=== PATIENT | male | born 1940 | race Caucasian/White ===

== ENCOUNTER 2021-03-19 13:40 | Inpatient (IN) | payer MEDICARE ==
[~2021-03-19] VITALS: Ht 175 cm; Wt 86.2 kg
[~2021-03-19 13:40] MED LIST: ACET-2650 PO; ACETAMINOPHEN 325 MG TABLET PO PRN; ACHD5005 PO; ALPRAZolam 0.25 MG (XANAX) TAB PO PRN; AMIO400T5 PO; APIX5TAB PO; ASPI-1238 PO; ATOR80TA76 PO; BISACODYL 10 MG SUPP (DULCOLAX) PR PRN; CALCIUM CARBONATE 500 MG (TUMS) TAB.CHEW PO PRN; DOCU100C37 PO; DOCUSATE SODIUM 100 MG (COLACE) CAP PO PRN; FLEET ENEMA ADULT 1 EA BTL PR PRN; GUAI120013 PO; LACTULOSE SYRUP 10GM/15ML (ENULOSE) 30ML UDC PO PRN; LOPERAMIDE 2 MG (IMODIUM) TABLET PO PRN; MELATONIN 3 MG TABLET PO PRN; METO-333 PO; ONDA-105 PO; ONDANSETRON 4 MG (ZOFRAN) ORAL DISSOLVE TAB PO PRN; PAMI30VI8 SQ; PANT40TA52 PO; POLY17PO6 PO; diphenhydrAMINE 25 MG TAB (BENADRYL) PO PRN; guaiFENesin/CODEINE (ROBITUSSIN AC) 10ML UDC PO PRN
--- NOTE | 2021-03-19 15:17 | Physical Therapy Evaluation ---
PT Evaluation-General Medical Diagnosis Admission Date Mar 19, 2021 at 13:40 Medical Diagnosis: CABG, CVA Onset Date: Mar 12, 2021 Therapy Diagnosis Therapy Diagnosis: impaired mobility Precautions Precautions/Isolations: Fall Prevention, Standard Precautions Weight Bear Status sternal precautions Referral Physician: Mildred Maria DO Reason for Referral: Evaluation/Treatment Medical History Pertinent Medical History: CAD, DM, HTN Reviewed History: Yes Social History Home: Multilevel Current Living Status: Spouse Entry Into Home: Stairs Without Railing PT Steps Into Home: 2 patient has a flight of steps to go up to his bedroom but patient is currently moving and will not have a flight of steps Prior Prior Level of Function SCALE: Activities may be completed with or without assistive devices. 1-Ncgpdfspww-vrdafyt completes the activity by him/herself with no assistance from a helper. 5-Set-up or Clean-up Assistance-helper sets up or cleans up; patient completes activity. [place] assists only prior to or following the activity. 4-Supervision or Touching Assistance-helper provides verbal cues and/or touching/steadying and/or contact guard assistance as patient completes activity. Assistance may be provided throughout the activity or intermittently. 3-Partial/Moderate Assistance-helper does LESS THAN HALF the effort. [place] lif ts, holds or supports trunk or limbs, but provides less than half the effort. 2-Substantial/Maximal Assistance-helper does MORE THAN HALF the effort. [place] lifts or holds trunk or limbs and provides more than half the effort. 9-Sksqroaww-qwaseq does ALL the effort. Patient does none of the effort to complete the activity. Or, the assistance of 2 or more helpers is required for the patient to complete the activity. If activity was not attempted, code reason: 7-Patient Refused. 9-Not Applicable-not attempted and the patient did not perform the activity before the current illness, exacerbation or injury. 10-Not Attempted due to Environmental Limitations-(lack of equipment, weather restraints, etc.). 88-Not Attempted due to Medical Conditions or Safety Concerns. Bed Mobility: 6 Transfers (B,C,W/C): 6 Gait: 6 Stairs: 6 Indoor Mobility (Ambulation): Independent Stairs: Independent PT Evaluation-Current Subjective Patient in family vehicle pre tx, agrees to PT, has minor incisional chest pain. Will be co-treating with OT for part of tx due to poor patient mobility, strength, endurance, coordinate UE and LE during activity, safety and reduce risk of falls. Pt/Family Goals to be independent at home Objective Patient Orientation: Person, Place, Situation ROM/Strength ROM Lower Extremities WNL Strength Lower Extremities LLE (hip flexion 3+/5, knee flexion 5/5, knee extension 5/5, dorsiflexion 5/5), RLE (hip flexion 3+/5, knee flexion 5/5, knee extension 5/5, dorsiflexion 5/5) Neuromuscular (Tone, Coordination, Reflexes) patient has intact peripheral vision and good tracking, patient states his vision was not affected by the stroke Sensory Vision: Functional Hearing: Hearing Aid/Aides Sensation Right Lower Extremit: Intact Sensation Left Lower Extremity: Intact Transfers Roll Left & Right (QC): 4 Sit to Lying (QC): 4 Lying to Sitting/Side of Bed(Q: 4 Sit to Stand (QC): 3 Chair/Eja-ue-Heuvc Xfer(QC): 4 Toilet Transfer (QC): 4 Car Transfer (QC): 3 Patient performs rolling and supine <-> sit with SBA, sit <-> stand min assist, transfers CGA, car transfer min assist. Patient has some difficulty with supine <-> sit but can do it with cues for positioning without therapist assist. Patient is aware of her sternal precautions Gait Does the Patient Walk?: Yes Mode of Locomotion: Walk Anticipated Mode of Locomotion: Walk Walk 10 feet (QC): 4 Walk 50 ft with 2 Turns(QC): 4 Walk 150 ft (QC): 4 Walking 10ft/uneven surface-QC: 4 Distance: 300', 100'x2 Gait Assistive Device: FWW Comments/Gait Description Patient can ambulate 300' with a rolling walker with CGA (including 50' with at least 2 turns of 90 degrees and 10' over an uneven surface), ambulation is slow, has moments of slight unsteadiness but no LOB, is a little SOB afterward but recovers quickly with rest Wheelchair Training Does the Pt Use a Wheelchair?: No Wheel 50 ft with 2 turns (QC): 9 Wheel 150 ft (QC): 9 Stairs #of Steps: 1 1 Step (curb) (QC): 4 4 Steps (QC): 88 12 Steps (QC): 88 Walking Assistive Device: Walker Patient can go up and down 1 step using a rolling walker with CGA, cues for safety Balance Sitting Static: Normal Sitting Dynamic: Normal Standing Static: Good Standing Dynamic: Fair Picking up an Object (QC): 4 (SBA with brush stainer) Treatment PT performed bed mobility and transfers, ambulation, stair training, standing and positioning and safety during dressing and bathing, OT performed dressing, bathing, UE positioning and safety during activity, precaution compliance. Assessment/Needs Patient in bed post tx with nurse call, phone, tray, all needs met. Patient has impaired mobility. He needs cues for positioning of arms when standing and laying down. Rehab Potential: Fair PT Short Term Goals Short Term Goals Time Frame: Mar 26, 2021 Roll Left & Right: 6 Sit to lyin Lying to sitting on side of be: 6 Sit to stand: 4 (SBA) Chair/aun-mb-nsvvw transfer: 4 (SBA) Walk 10 feet: 4 (SBA) Walk 50 feet with two turns: 4 (SBA) Walk 150 feet: 4 (SBA) PT Clinical Research Spec Goals Prison Goals PT Prison Goals Time Frame: Apr 09, 2021 Roll Left & Right (QC): 6 Sit to Lying (QC): 6 Lying-Sitting on Side/Bed(QC): 6 Sit to Stand (QC): 6 Chair/Xzp-vh-Ljbxa Xfer(QC): 6 Toilet Transfer (QC): 6 Car Transfer (QC): 6 Does the Patient Walk: Yes Walk 10 feet (QC): 6 Walk 50ft with 2 Turns (QC): 6 Walk 150 ft (QC): 6 Walking 10ft on Uneven Surface: 6 1 Step (curb) (QC): 4 4 Steps (QC): 4 12 Steps (QC): 4 Picking up an Object (QC): 6 Wheel 50 feet with 2 turns (QC: 9 Wheel 150 feet: 9 PT Plan Problem List Problem List: Activity Tolerance, Functional Strength, Safety, Balance, Gait, Transfer, Bed Mobility, ROM Treatment/Plan Treatment Plan: Continue Plan of Care Treatment Plan: Bed Mobility, Education, Functional Activity Sav, Functional Strength, Group Therapy, Gait, Safety, Therapeutic Exercise, Transfers Treatment Duration: Apr 09, 2021 Frequency: At least 5 of 7 days/Wk (IRF) Estimated Hrs Per Day: 1.5 hours per day Patient and/or Family Agrees t: Yes Safety Risks/Education Patient Education: Gait Training, Transfer Techniques, Steps, Reviewed Precautions, Correct Positioning, Safety Issues Teaching Recipient: Patient Teaching Methods: Demonstration, Discussion Response to Teaching: Reinforcement Needed Discharge Recommendations Plan Patient will perform bed mobility and transfer training, balance and endurance training, functional strengthening, stair training, gait training, and education, to improve functional mobility and independence at home. Therapy Discharge Recommendati: Home & Family, Post Acute PT Time/GCodes Time In: 1340 Time Out: 1520 Total Billed Treatment Time: 90 Total Billed Treatment 1 visit EVM 10' FA 80' PT eval from [id number], OT eval from [id number], co-treat from [id number] NOLAN WALSH PT Mar 19, 2021 15:16
--- NOTE | 2021-03-19 15:19 | Occupational Therapy Eval ---
OT Evaluation-General/PLF Medical Diagnosis Admission Date Mar 19, 2021 at 13:40 Medical Diagnosis: s/p CABG x4 and CVA Onset Date: Mar 12, 2021 Therapy Diagnosis Therapy Diagnosis: reduced adl status Precautions Precautions/Isolations: Fall Prevention, Standard Precautions Comments Sternal precautions Per RN, prevena dressing to be discharged 03/20/21. Pt able to get incisions wet with water only. No soap. Weight Bear Status Weight Bearing Restriction: Non Weight Bearing Location Restriction: UE Bilateral Referral Physician: Candace Referral Reason: Evaluation/Treatment Medical History Pertinent Medical History: CABG, CAD, DM, HTN Additional Medical History coronary stent x2, lumbar disc Current History s/p CABG x4 on 03/12/21. Post op AMS and L sided weakness. MRI on 03/16 revealed subacute L ASSAYER HELPER infarct involving L temporal and occipital lobe. Reviewed History: Yes Social History Home: Multilevel Current Living Status: Spouse Entry Into Home: Stairs With Railing Pt reports that he lives in a multilevel home with his . He is in the process of moving into a new home in April. The new home is one level, zero steps. Pt was indep with adls prior to admission. completes most of the iadls. No assistive device used, still drives ADL-Prior Level of Function SCALE: Activities may be completed with or without assistive devices. 2-Zonfyrnwsv-czcnsoi completes the activity by him/herself with no assistance from a helper. 5-Set-up or Clean-up Assistance-helper sets up or cleans up; patient completes activity. [place] assists only prior to or following the activity. 4-Supervision or Touching Assistance-helper provides verbal cues and/or touching/steadying and/or contact guard assistance as patient completes activity. Assistance may be provided throughout the activity or intermittently. 3-Partial/Moderate Assistance-helper does LESS THAN HALF the effort. [place] lifts, holds or supports trunk or limbs, but provides less than half the effort. 2-Substantial/Maximal Assistance-helper does MORE THAN HALF the effort. [place] lifts or holds trunk or limbs and provides more than half the effort. 2-Yobuycbdb-ekcuqw does ALL the effort. Patient does none of the effort to complete the activity. Or, the assistance of 2 or more helpers is required for the patient to complete the activity. If activity was not attempted, code reason: 7-Patient Refused. 9-Not Applicable-not attempted and the patient did not perform the activity before the current illness, exacerbation or injury. 10-Not Attempted due to Environmental Limitations-(lack of equipment, weather restraints, etc.). 88-Not Attempted due to Medical Conditions or Safety Concerns. Self Care: Independent Functional Cognition: Independent DME/Equipment: Bath Chair (built in seat), Grab Bars, Shower Drive Self: Yes Leisure Interests: golfing OT Current Status Subjective Pt reports slight pain stemming from incision Appearance Left supine in bed, all needs within reach Mental Status/Objective Patient Orientation: Person, Situation Attachments: IV Current Glasses/Contacts: Yes (reading) Hearing Aids: Yes (bilateral) Dentures/Partials: Yes Hand Dominance: Right Upper Extremity ROM Shoulder to 90 degrees secondary to sternal precautions. Elbow-distally WNL. Swelling notable in bilateral hands Upper Extremity Strength Not formally tested due to recent surgery. Anticipate at least 3+/5 ADL-Treatment Eating (QC): 6 Oral Hygiene (QC): 4 Shower/Bathe Self (QC): 3 (min) Upper Body Dressing (QC): 3 (mod) Lower Body Dressing (QC): 3 (min) On/Off Footwear (QC): 3 (min) Toileting Hygiene (QC): 4 Sponge bath performed; majority completed in sitting. Prevena dressing to be removed 03/20/21. Per RN, incisions can get wet with water only, no soap. Min cues on adherence to sternal precautions throughout activity. Pt often forgetting no lifting over 90 degrees shoulder flexion. In sitting, pt able to reach feet with extra effort. SOA notable post step, needing a sitting rest break to recover and cues for PLB. Steadying assist required as he stood to wash benny area. Min a for thoroughness when washing buttocks. Pt able to manage pants over feet with supervision. Min a for balance as he stood to manage clothing up to waist. In standing, pt able to thread RUE into sleeve, requires assist to bring around back and thread LUE. Pt able to button without assist. Other Treatments Pt ambulated throughout unit with close SBA-CGA and use of walker. No LOB or unsteadiness observed. Pt does report fatigue post mobility and exhibits slight SOB. Sitting rest break needed. Multiple sit<>stands performed throughout treatment. Initially min- mod a needed. As session continues, pt able to stand with CGA and hands on knees. Education OT Patient Education: Correct positioning, Disease process, Energy conservatio n, Modified ADL techniques, Progress toward Goal/Update tx plan, Purpose of tx/functional activities, Reviewed precautions, Rehab process, Safety issues, Transfer techniques Teaching Recipient: Patient Teaching Methods: Demonstration, Discussion Response to Teaching: Verbalize Understanding, Return Demonstration, Live nforcement Needed OT Short Term Goals Short Term Goals Time Frame: Mar 24, 2021 Eatin Oral hygiene: 6 Toileting hygiene: 4 Shower/bathe self: 4 Upper body dressin Lower body dressin Putting on/taking off footwear: 4 OT Senior Care Goals Carrier Packer Goals Time Frame: Mar 30, 2021 Eating (QC): 6 Oral Hygiene (QC): 6 Toileting Hygiene (QC): 6 Shower/Bathe Self (QC): 5 Upper Body Dressing (QC): 6 Lower Body Dressing (QC): 6 On/Off Footwear (QC): 5 1=Demonstrate adherence to instructed precautions during ADL tasks. 2=Patient will verbalize/demonstrate understanding of assistive devices/modifications for ADL. 3=Patient will improve strength/tolerance for activity to enable patient to perform ADL's. OT Education/Plan Problem List/Assessment Assessment: Decreased Activ Tolerance, Decreased Safety Aware, Decreased UE Strength, Impaired Cognition, Impaired Funct Balance, Impaired Self-Care Skills, Restricted Funct UE ROM Discharge Recommendations Plan/Recommendations: Continue POC Therapy Discharge Recommendati: Home & Family, Post Acute OT (home health OT) Equpiment Recommendations-D/C: Toilet Riser Treatment Plan/Plan of Care Treatment,Training & Education: Yes Patient would benefit from OT for education, treatment and training to promote independence in ADL's, mobility, safety and/or upper extremity function for ADL's. Plan of Care: ADL Retraining, Functional Mobility, Group Exercise/Act as Ind, UE Funct Exercise/Act Treatment Duration: Mar 30, 2021 Frequency: At least 5 of 7 days/Wk (IRF) Estimated Hrs Per Day: 1.5 hours per day Agreement: Yes Rehab Potential: Good Time/GCodes Start Time: 13:50 Stop Time: 15:20 Total Time Billed (hr/min): 90 Billed Treatment Time 1 visit EVM (10 min) ADL x3 (50 min) FA x2 (30 min) Kelsi Easton OT Mar 19, 2021 15:19
[2021-03-19] MEDS ORDERED: NON-FORMULARY MEDICATION 1 EA EA (Ondansetron HCl 4 MG) PO PRN (17:00)
[2021-03-19] MEDS ORDERED: NON-FORMULARY MEDICATION 1 EA EA (Acetaminophen (Tylenol Arthritis) 650 MG) PO PRN (17:00)
[2021-03-19] MEDS ORDERED: NON-FORMULARY MEDICATION 1 EA EA (Guaifenesin (Mucinex) 1,200 MG) PO SCH (17:00)
--- NOTE | 2021-03-19 17:16 | PM&R Post Admission Assessment ---
PM&R HP Date of Visit: Mar 19, 2021 Time of Visit: 18:00 History of Present Illness Chief complaint: CVA History of present illness: This is an 80-year-old white male clinic patient of Dr. Farshad Patel in [place], [place] and Dr. 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 Apparently patient had a CABG and postoperatively experienced altered mental status and upon work-up revealed a subacute left PRESSING MACHINE TENDER infarct involving the left temporal lobe and left occipital lobe. It was c onsidered a large stroke. Ultimately required a wound VAC to the sternal incision which was discontinued yesterday. He did experience acute blood loss anemia with hemoglobin stable at 9.6 with hypoxemia that has since resolved and now on room air. He did have leukocytosis and vancomycin and meropenem were given empirically and discontinued since all cultures were no growth to date. He does have a history of chronic kidney disease stage III with hypernatremia and hypokalemia an episode of atrial fibrillation now normal sinus rhythm. Prior to surgery he was independent with no assistive devices active and golfing. Past Rulalxo-Ykquza-Lkrtzg Hx Past Med/Social Hx: Reviewed Nursing Past Med/Soc Hx, Reviewed and Corrections made Patient Social History Marrital Status: Employed/Student: retired Alcohol Use: Occasionally Uses Smoking Status: Former Smoker Immunizations Up To Date Date of Influenza Vaccine: Nov 08, 2021 Past Medical History Surgeries: CABG, Coronary Stent Cardiac: Atrial Fibrillation, Chronic Edema/Swelling, Coronary Artery Disease, High Cholesterol, Hypertension Neurological: Stroke Genitourinary: Prostate Problems, Renal Failure Gastrointestinal: Gastroesophageal Reflux, Hemorrhoids Musculoskeletal: Chronic Back Pain Endocrine: Diabetes, Non-Insulin dep Prior Level of Function Bed Mobility: 6 Transfers: 6 Gait: 6 Stairs: 6 Indoor Mobility (Ambulation): Independent Stairs: Independent Self Care: Independent Functional Cognition: Independent Drive Self: Yes Leisure Interests: golfing Current Level of Fuctioning Roll Left to Right: 4 Sit to Lyin Lying to Sitting/Side of Bed: 4 Sit to Stand: 3 Chair/Nuk-cf-Kvnql Xfer: 4 Car Transfer: 3 Does the Patient Walk: Yes Mode of Locomotion: Walk Anticipated Mode of Locomotion: Walk Walk 10 feet: 4 Walk 50 ft with 2 Turns: 4 Walk 150 ft: 4 Walking 10ft on uneven surface: 4 Gait Assistive Device: FWW Does the Pt Use a Wheelchair: No Wheel 50 ft with 2 turns: 9 Wheel 150 ft: 9 #of Steps: 1 1 Step (curb): 4 4 Steps: 88 Walking Assistive Device: Walker 12 Steps: 88 Picking up an Object: 4 (SBA with bulb filler) Eatin Oral Hygiene: 4 Shower/Bathe Self: 3 (min) Upper Body Dressin (mod) Lower Body Dressin (min) On/Off Footwear: 3 (min) Toileting Hygiene: 4 PM&R Allergy/Meds/Data Review Allergies Coded Allergies: No Known Drug Allergies (Unverified , 03/19/21) Home Medications Scheduled Amiodarone HCl (Amiodarone HCl), 400 MG PO DAILY, (Reported) Apixaban (Eliquis), 5 MG PO BID, (Reported) Aspirin (Aspirin EC), 81 MG PO DAILY, (Reported) Atorvastatin Calcium (Atorvastatin Calcium), 80 MG PO HS, (Reported) Docusate Sodium (Docusate Sodium), 100 MG PO BID, (Reported) Guaifenesin (Mucinex), 1,200 MG PO Q12H, (Reported) Insulin Lispro (Humalog), UNIT SQ WITH MEALS & BEDTIME, (Reported) Metoprolol Tartrate (Metoprolol Tartrate), 12.5 MG PO BID WITH MEALS, (Reported) Pantoprazole Sodium (Pantoprazole Sodium), 40 MG PO DAILY, (Reported) Polyethylene Glycol 3350 (Miralax), 17 GM PO DAILY, (Reported) Scheduled PRN Acetaminophen (Tylenol Arthritis), 650 MG PO Q4H PRN for PAIN-MILD (1-4), (Reported) Hydrocodone/Acetaminophen (Hydrocodone-Acetamin 5-325 mg), 1 TAB PO Q6H PRN for PAIN-MODERATE (5-7), (Reported) Ondansetron HCl (Ondansetron HCl), 4 MG PO Q6H PRN for NAUSEA/VOMITING-1ST LINE, (Reported) Current Medications Current Medications Reviewed Review of Systems Constitutional: see HPI, malaise, weakness EENTM: no symptoms reported Respiratory: dyspnea on exertion Cardiovascular: no symptoms reported Gastrointestinal: no symptoms reported Genitourinary: decreased output Musculoskeletal: back pain Skin: no symptoms reported Psychiatric/Neurological: Anxiety, Numbness, Weakness All Other Systems Reviewed Negative Unless Noted: Yes Physical Exam Physical Exam Vital Signs Capillary Refill : Height, Weight, BMI Height: '" Weight: lbs. oz. kg; 28.08 BMI Method: General Appearance: No Apparent Distress, WD/WN, Chronically ill, Obese Eyes: Bilateral Eye Normal Inspection, Bilateral Eye PERRL HEENT: PERRL/EOMI, Normal ENT Inspection, Pharynx Normal Neck: Full Range of Motion, Normal Inspection, Non Tender, Supple, Carotid Bruit Respiratory: Chest Non Tender, Lungs Clear, Normal Breath Sounds, No Accessory Muscle Use, No Respiratory Distress Cardiovascular: Regular Rate, Rhythm, No Edema, No Gallop, No JVD, No Murmur, Normal Peripheral Pulses Gastrointestinal: Normal Bowel Sounds, No Organomegaly, No Pulsatile Mass, Non Tender, Soft Back: Normal Inspection, No CVA Tenderness, No Vertebral Tenderness Extremity: Normal Capillary Refill, Normal Inspection, Normal Range of Motion, Non Tender, No Calf Tenderness, No Pedal Edema Neurologic/Psychiatric: Alert, Oriented x3, Normal Mood/Affect, desk reporter II-XII Norm as Tested, Abnormal Gait, Motor Weakness (Bilateral upper extremities 3/5) Skin: Normal Color, Warm/Dry Lymphatic: No Adenopathy PM&R Medical Assessment & Plan REHAB/MEDICAL ASSESSMENT AND PLAN: REHAB IMPAIRMENT GROUP: CVA ETIOLOGIC DIAGNOSIS: CVA The comorbidities that impact the patients function and/or functional outcome by: Recent bypass surgery sternal wound, advanced age REHAB PLAN: The patient is being admitted to our comprehensive inpatient rehabilitation facility and can tolerate the intensity of service consisting of at least: 180 minutes of therapy a day, 5 out of 7 days a week Rehab treatment will consist of: PT and OT will focus on regaining function with use of assistive device in order to return back to independent living with and speech therapy will help with cognitive deficits The patient/family has a good understanding of our discharge process and will benefit from an interdisciplinary inpatient rehabilitation program. The patient has potential to make improvement and is in need of at least two of the following multidisciplinary therapies including but not limited to physical, occupational, speech, and prosthetics and orthotics. Additionally the patient will need services from respiratory, nutritional services, wound care, psychology, etc. (Customize this to each patient). Given the patients complex condition and risk of further medical complications, rehabilitation services cannot be safely or effectively provided at a lower level of care such as a longterm facility. BARRIERS TO DISCHARGE: Severe weakness ESTIMATED LOS: 10 days DISPOSITION: Home RELEVANT CHANGES SINCE PREADMISSION SCREENING: I have compared the patients medical and functional status at the time of the preadmission screening and there are: No changes PROGNOSIS: Good REHABILITATION GOALS: 1. PT and OT will focus on regaining function with use of assistive device in order to return back to independent living with and speech therapy will help with cognitive deficits All the above goals were reviewed with the patient and he/she is in agreement. By signing this document, I acknowledge that I have personally performed a full physical examination on this patient within 24 hours of admission to this inpatient rehabilitation facility and have determined the patient to be able to tolerate the above course of treatment at an intensive level for a reasonable period of time. I will be completing a detailed individualized Plan of Care for this patient by day #4 of the patients stay based upon the Preadmission Screen, the Post-Admission Evaluation, and the therapy evaluations. Admission Dx/Comorbidities: (1) CVA (cerebral vascular accident) ICD Codes: I63.9 - Cerebral infarction, unspecified Assessment/Plan Assessment and Plan Assess & Plan/Chief Complaint Assessment: CVA Atrial fibrillation Maintain on anticoagulation for stroke prophylaxis Diabetes Hypertension Hyperlipidemia Confusion Sternal wound Recent bypass surgery Plan: Rehab protocol Cardiology consult Monitor closely LESTER MACIEL DO Mar 19, 2021 17:16
[2021-03-19] MEDS: meTOprolol TARTRATE 25 MG (LOPRESSOR) TABLET PO SCH (19:12)
[2021-03-19 19:58] VITALS: BP 151/69
[2021-03-19] MEDS ORDERED: polyethylene glycoL POWDER 17 GM (MIRALAX) PACK PO SCH (21:00)
[2021-03-19] MEDS ORDERED: DOCUSATE SODIUM 100 MG (COLACE) CAP PO SCH (21:00)
[2021-03-19] MEDS: inSUlin ASPART (NovoLOG) 1 UNIT/0.01 ML (CHARGE PER UNIT) SC SCH (21:37)
[2021-03-19] MEDS: guaiFENesin (MUCINEX) 600 MG TAB PO SCH (21:47)
[2021-03-19] MEDS: APIXABAN 5 MG (ELIQUIS) TABLET PO SCH (21:47)
[2021-03-19] MEDS: DOCUSATE SODIUM 100 MG (COLACE) CAP PO SCH (21:52)
[2021-03-19] MEDS: SENNA W/DOCUSATE (SENOKOT S) TABLET PO SCH (21:53)
[2021-03-20] MEDS: inSUlin ASPART (NovoLOG) 1 UNIT/0.01 ML (CHARGE PER UNIT) SC SCH ×4 (06:00→20:35)
--- NOTE | 2021-03-20 06:46 | PM&R Progress Note ---
Subjective HPI/CC On Admission Date Seen by Provider: Mar 20, 2021 Time Seen by Provider: 11:00 Subjective/Events-last exam 03/20/2021: Patient doing very well Settling in well EKG obtained for Dr. Encarnacion No pain is reported except for mediastinum Reviewed labs Sitting in chair Eating well Review of Systems General: Fatigue, Malaise Objective Exam Vital Signs Vital Signs Date Time Temp Pulse Resp B/P (MAP) Pulse Ox O2 Delivery O2 Flow Rate FiO2 03/20/21 20:38 93 Room Air 03/20/21 19:32 36.8 68 18 165/76 (105) Capillary Refill : General Appearance: No Apparent Distress, WD/WN, Chronically ill, Obese HEENT: PERRL/EOMI, Normal ENT Inspection, Pharynx Normal Neck: Full Range of Motion, Normal Inspection, Non Tender, Supple, Carotid Bruit Respiratory: Chest Non Tender, Lungs Clear, Normal Breath Sounds, No Accessory Muscle Use, No Respiratory Distress Cardiovascular: Regular Rate, Rhythm, No Edema, No Gallop, No JVD, No Murmur, Normal Peripheral Pulses Gastrointestinal: Normal Bowel Sounds, No Organomegaly, No Pulsatile Mass, Non Tender, Soft Back: Normal Inspection, No CVA Tenderness, No Vertebral Tenderness Extremity: Normal Capillary Refill, Normal Inspection, Normal Range of Motion, Non Tender, No Calf Tenderness, No Pedal Edema Neurologic/Psychiatric: Alert, Oriented x3, Normal Mood/Affect, exterminator helper II-XII Norm as Tested, Abnormal Gait, Motor Weakness (Bilateral upper extremities 3/5) Skin: Normal Color, Warm/Dry Lymphatic: No Adenopathy Results/Procedures Lab Patient resulted labs reviewed. FIM Transfers Therapy Code Descriptions/Definitions Functional [place] Measure: 0=Not Assessed/NA 4=Minimal Assistance 1=Total Assistance 5=Supervision or Setup 2=Maximal Assistance 6=Modified [place] 3=Moderate Assistance 7=Complete IndependenceSCALE: Activities may be completed with or without assistive devices. 2-Jomnrwjrmd-ngaacms completes the activity by him/herself with no assistance from a helper. 5-Set-up or Clean-up Assistance-helper sets up or cleans up; patient completes activity. [place] assists only prior to or following the activity. 4-Supervision or Touching Assistance-helper provides verbal cues and/or touching/steadying and/or contact guard assistance as patient completes activity. Assistance may be provided throughout the activity or intermittently. 3-Partial/Moderate Assistance-helper does LESS THAN HALF the effort. [place] lifts, holds or supports trunk or limbs, but provides less than half the effort. 2-Substantial/Maximal Assistance-helper does MORE THAN HALF the effort. [place] lifts or holds trunk or limbs and provides more than half the effort. 7-Gujanpkhc-obzroe does ALL the effort. Patient does none of the effort to complete the activity. Or, the assistance of 2 or more helpers is required for the patient to complete the activity. If activity was not attempted, code reason: 7-Patient Refused. 9-Not Applicable-not attempted and the patient did not perform the activity before the current illness, exacerbation or injury. 10-Not Attempted due to Environmental Limitations-(lack of equipment, weather restraints, etc.). 88-Not Attempted due to Medical Conditions or Safety Concerns. Roll Left to Right (QC): 4 Sit to Lying (QC): 4 Sit to Stand (QC): 3 Chair/Nqb-lb-Vykfe Xfer(QC): 4 Car Transfer (QC): 3 Gait Training Does the Patient Walk?: Yes Walk 10 feet (QC): 4 Walk 50 ft with 2 Turns(QC): 4 Walk 150 ft (QC): 4 Walking 10ft/uneven surface-QC: 4 Gait Assistive Device: FWW Wheelchair Training Does the Pt Use a Wheelchair?: No Wheel 50 ft with 2 turns (QC): 9 Wheel 150 ft (QC): 9 Stair Training #of Steps: 1 1 Step (curb) (QC): 4 4 Steps (QC): 88 12 Steps (QC): 88 Balance Picking up an Object (QC): 4 (SBA with veneer drier feeder) ADL-Treatment Eating (QC): 6 Oral Hygiene (QC): 4 Shower/Bathe Self (QC): 3 (min) Upper Body Dressing (QC): 3 (mod) Lower Body Dressing (QC): 3 (min) On/Off Footwear (QC): 3 (min) Toileting Hygiene (QC): 4 Assessment/Plan Assessment and Plan Assess & Plan/Chief Complaint Assessment: CVA Atrial fibrillation Maintain on anticoagulation for stroke prophylaxis Diabetes Hypertension Hyperlipidemia Confusion Sternal wound Recent bypass surgery Plan: Rehab protocol Cardiology consult Monitor closely 03/20/2021: Supportive care Labs stable (1) CVA (cerebral vascular accident) LESTER MACIEL DO Mar 20, 2021 06:46
--- NOTE | 2021-03-20 06:46 | Individualized Plan of Care ---
Individualized Plan of Care Rehab Nursing IPOC Order Admission Date Mar 19, 2021 at 13:40 Current Orders Orders Admission Order(Inpt,Obs,Sdc) (03/19/21:33) Ramirez Avalos (03/19/21:33) Sequential Compression Device (03/19/21:33) Rn Medical Inpatient Services-Inpt Rehab Con (03/19/21:33) Rehab Nursing Orders-Ipoc (03/19/21:33) Physical Therapy Rehab Orders (03/19/21:33) Occupational Therapy Rehab Ord (03/19/21:33) Speech Therapy Rehab Orders (03/19/21:33) Cbc With Automated Diff (03/20/21 06:00) Comprehensive Metabolic Panel (03/20/21 06:00) Precautions (Aru) (03/19/21:33) Weekly Weight WEEK (03/19/21:33) Rehab-Intensity Of Therapy (03/19/21:33) Initiate Admission Nursing Pro .admission (03/19/21:33) Alprazolam Tablet (Xanax Tablet) (03/19/21 09:45) Calcium Carbonate Chew Tablet (Antacid C (03/19/21 09:45) Diphenhydramine Tablet (Benadryl Tablet) (03/19/21 09:45) Docusate Sodium Capsule (Colace Capsule) (03/19/21 21:00) Docusate Sodium Capsule (Colace Capsule) (03/19/21 09:45) Bisacodyl Suppository (Dulcolax Supposit (03/19/21 09:45) Lactulose Oral Solution (Enulose Oral So (03/19/21 09:45) Na Phos/Na Biphos Enema (Fleet Enema Bryce (03/19/21 09:45) Guaifenesin/Codeine Syrup (Robitussin Ac (03/19/21 09:45) Loperamide Tablet (Imodium Tablet) (03/19/21 09:45) Melatonin Tablet (Melatonin Tablet) (03/19/21 09:45) Polyethylene Glycol Powder Pkt (Miralax (03/19/21 21:00) Ondansetron Oral Dissolve Tab (Zofran (03/19/21 09:45) Senna S Tablet (Senokot S Tablet) (03/19/21 21:00) Acetaminophen Tablet/Caplet (Tylenol T (03/19/21 09:45) Code/Resuscitation (03/19/21 09:33) Sequential Compression Device ONCE (03/19/21 09:33) Admission Arrival Bed Request (03/19/21 13:40) General/Regular (03/19/21 Lunch) Patient Visit (03/19/21 ) Pt Eval Moderate Complexity (03/19/21 ) Functional Activities, Ea 15 (03/19/21 ) Apixaban Tablet (Eliquis Tablet) (03/19/21 21:00) Aspirin Enteric Coated Tablet (Ecotrin T (03/20/21 09:00) Atorvastatin Tablet (Lipitor Tablet) (03/19/21 21:00) Docusate Sodium Capsule (Colace Capsule) (03/19/21 21:00) Hydrocodone/Apap 5/325 Tablet (Lortab 5 (03/19/21 17:00) Metoprolol Tartrate (Ir) Tab (Lopressor (03/19/21 18:00) Pantoprazole Tablet (Protonix Tablet) (03/20/21 09:00) Polyethylene Glycol Powder Pkt (Miralax (03/20/21 09:00) (Nf) Acetaminophen (Tylenol Arthritis) (03/19/21 17:00) (Nf) Amiodarone Hcl (03/20/21 09:00) (Nf) Guaifenesin (Mucinex) (03/19/21 17:00) (Nf) Ondansetron Hcl (03/19/21 17:00) Accucheck Achs ACHS (03/19/21 16:55) Insulin Aspart (Novolog) (Novolog (Charg (03/19/21 21:00) Amiodarone Tablet (Cordarone Tablet) (03/20/21 09:00) Nursing Communication (Order) (03/19/21 17:01) Dressing Order (Intervention) DAILY (03/19/21 17:01) Guaifenesin Tablet (Mucinex Tablet) (03/19/21 21:00) Fluid Restriction (03/19/21 17:20) Consult Cardiology (03/20/21 06:39) Ekg Tracing (03/20/21 08:00) Manual Differential (03/20/21 05:45) Patient Visit (03/20/21 ) Gait Training, Ea 15 Min (03/20/21 ) Exercise Therap, Ea 15 Min (03/20/21 ) Amiodarone Tablet (Cordarone Tablet) (03/21/21 09:00) Rehab Nursing Orders: Ongoing Assess. of Cognitive Status, Ongoing Assess. of Function Status, Bladder Management, Bladder Scan, Bladder Training, Bowel Management, Bowel Training, Disease Management & Educaiton, DVT Prophylaxis, Fall Prevention, Fluid/Electrolyte/Nutrition Mgmt, Infection Prevention, Medication Management & Education, Management of Risks & Complications, Management of Skin Intergrity, Nutrition Management, Pain Management, Patient/Family Support, Safety Management, Wound Management Intensity of Therapy to be met Patient to be seen: Min.3h per day/5 of 7d PT IPOC Problem List: Activity Tolerance, Functional Strength, Safety, Balance, Gait, Transfer, Bed Mobility, ROM Treatment Plan: Continue Plan of Care Bed Mobility, Education, Functional Activity Sav, Functional Strength, Group Therapy, Gait, Safety, Therapeutic Exercise, Transfers Treatment Duration: Apr 09, 2021 Frequency: At least 5 of 7 days/Wk (IRF) Estimated Hrs Per Day: 1.5 hours per day OT IPOC Problems: Decreased Activ Tolerance, Decreased Safety Aware, Decreased UE Strength, Impaired Cognition, Impaired Funct Balance, Impaired Self-Care Skills, Restricted Funct UE ROM OT Treatment, Training and Edu: Yes Plan of Care: ADL Retraining, Functional Mobility, Group Exercise/Act as Ind, UE Funct Exercise/Act Treatment Duration: Mar 30, 2021 Frequency: At least 5 of 7 days/Wk (IRF) Estimated Hrs Per Day: 1.[address] IPOC Speech Therapy Treatment Plan: Discontinue ST Treatment Duration: Mar 19, 2021 Frequency: Modified Program (IRF) Estimated Hrs Per Day: Other Rn Medical Inpatient Services/Case Mgmt Rn Medical Inpatient Services/Case Managemen: Discharge Planning Dietitian/Child Development Director Dietitian/Child Development Director to monitor nutritional status and make changes and/or recommendations as needed and work with speech pathology on dietary upgrades as the occur. Physician IPOC Medical Issues being managed closely and that require the 24 hour availability of a physician: Recent bypass with heart disease history and mediastinum wound in general weakness will be at high risk for decompensation will need close monitoring Medical Issues: Bowel/Bladder Function, DVT Prophylaxis, Falls Precautions, Fluid/Electrolyte/Nutrition Balance, Infection Protection, Pain Management, Wound Care Brief Synthesis of Preadmission Screen, Post-Admission Evaluation, and Therapy Evaluations: PT and OT will focus on fall risk prevention and increasing strength with use of assistive devices in order to return back to independent living Medical Prognosis: Good Anticipated Length of Stay: 10 days LESTER MACIEL DO Mar 20, 2021 06:46
[2021-03-20 06:56] LABS: BASOPHILS % (AUTO) 0 % (0-10); EOSINOPHILS # (AUTO) 0.2 10^3/uL (0.0-0.3); EOSINOPHILS % (AUTO) 1 % (0-10); HEMATOCRIT 35 % (40-54); LYMPHOCYTES # (AUTO) 2.3 10^3/uL (1.0-4.0); LYMPHOCYTES % (AUTO) 16 % (12-44); MEAN CORPUSCULAR HEMOGLOBIN 29 pg (25-34); MEAN CORPUSCULAR HGB CONC 32 g/dL (32-36); MEAN CORPUSCULAR VOLUME 91 fL (80-99); MEAN PLATELET VOLUME 11.2 fL (9.0-12.2); MONOCYTES # (AUTO) 0.7 10^3/uL (0.0-1.0); MONOCYTES % (AUTO) 5 % (0-12); NEUTROPHILS # (AUTO) 10.3 10^3/uL (1.8-7.8); NEUTROPHILS % (AUTO) 73 % (42-75); PLATELET COUNT 310 10^3/uL (130-400); WHITE BLOOD COUNT 14.1 10^3/uL (4.3-11.0)
[2021-03-20 07:24] LABS: ALBUMIN 3.1 GM/DL (3.2-4.5); POTASSIUM 4.1 MMOL/L (3.6-5.0)
[2021-03-20 07:25] LABS: CALCIUM 8.4 MG/DL (8.5-10.1)
[2021-03-20 07:27] LABS: TOTAL PROTEIN 5.9 GM/DL (6.4-8.2)
[2021-03-20 07:28] LABS: BILIRUBIN,TOTAL 0.9 MG/DL (0.1-1.0)
[2021-03-20 07:29] LABS: EOSINOPHILS % (MANUAL) 1 %; LYMPHOCYTES % (MANUAL) 17 %; MONOCYTES % (MANUAL) 5 %; NEUTROPHILS % (MANUAL) 72 %
[2021-03-20 07:30] LABS: ATYPICAL LYMPHOCYTES 4 %; CREATININE SERUM 1.2 MG/DL (0.60-1.30); MICROCYTOSIS SLIGHT; POLYCHROMASIA SLIGHT; REACTIVE LYMPHOCYTES 1 %
[2021-03-20 08:00] VITALS: BP 123/73
[2021-03-20] MEDS: SENNA W/DOCUSATE (SENOKOT S) TABLET PO SCH ×2 (08:36→20:39)
[2021-03-20] MEDS: guaiFENesin (MUCINEX) 600 MG TAB PO SCH ×2 (08:36→20:34)
[2021-03-20] MEDS: APIXABAN 5 MG (ELIQUIS) TABLET PO SCH ×2 (08:36→20:34)
[2021-03-20] MEDS: DOCUSATE SODIUM 100 MG (COLACE) CAP PO SCH ×2 (08:36→20:35)
[2021-03-20] MEDS: PANTOPRAZOLE 40 MG (PROTONIX) TAB PO SCH (08:36)
[2021-03-20] MEDS: ASPIRIN E.C. 81 MG (ECOTRIN) TAB PO SCH (08:36)
[2021-03-20] MEDS: meTOprolol TARTRATE 25 MG (LOPRESSOR) TABLET PO SCH ×2 (08:36→18:27)
[2021-03-20] MEDS: polyethylene glycoL POWDER 17 GM (MIRALAX) PACK PO SCH (08:36)
[2021-03-20] MEDS ORDERED: NON-FORMULARY MEDICATION 1 EA EA (Amiodarone HCl 400 MG) PO SCH (09:00)
[2021-03-20] MEDS ORDERED: AMIODARONE 200 MG (CORDARONE) TAB PO SCH (09:00)
--- NOTE | 2021-03-20 11:38 | Physical Therapy Daily Note ---
PT Daily Note-Current Subjective Pt in recliner upon arrival and has just returned from . Pt agrees to PT. Says he will do whatever PT wants so he can get out of here. Mental Status Patient Orientation: Person, Place, Time, Normal For Age Transfers SCALE: Activities may be completed with or without assistive devices. 9-Bekfljilzv-psogljm completes the activity by him/herself with no assistance from a helper. 5-Set-up or Clean-up Assistance-helper sets up or cleans up; patient completes activity. [place] assists only prior to or following the activity. 4-Supervision or Touching Assistance-helper provides verbal cues and/or touching/steadying and/or contact guard assistance as patient completes activity. Assistance may be provided throughout the activity or intermittently. 3-Partial/Moderate Assistance-helper does LESS THAN HALF the effort. [place] lifts, holds or supports trunk or limbs, but provides less than half the effort. 2-Substantial/Maximal Assistance-helper does MORE THAN HALF the effort. [place] lifts or holds trunk or limbs and provides more than half the effort. 7-Gnjmpjapz-bqppyu does ALL the effort. Patient does none of the effort to co mplete the activity. Or, the assistance of 2 or more helpers is required for the patient to complete the activity. If activity was not attempted, code reason: 7-Patient Refused. 9-Not Applicable-not attempted and the patient did not perform the activity before the current illness, exacerbation or injury. 10-Not Attempted due to Environmental Limitations-(lack of equipment, weather restraints, etc.). 88-Not Attempted due to Medical Conditions or Safety Concerns. Weight Bearing sternal precautions Gait Training Does the Patient Walk?: Yes Distance: 150' x1 100'x1 Walk 10 feet (QC): 5 Walk 50 ft with 2 Turns(QC): 4 Walk 150 ft (QC): 4 Gait Persons Needed: 1 Gait Assistive Device: FWW Exercises NuStep Minutes: 6 NuStep Workload: 1 Treatments Pt in recliner upon arrival and requires Joelle in order to get dressed. Pt then amb to therapy gym and TFs to nustep. After nustep pt requires rest break and then amb 150' back to room. Pt in recliner upon departure of PT w/ all needs met and nursing present call light nearby. Assessment Current Status: Good Progress Pt fatigued following nustep. Performed nustep w/ only legs. Reqiures skilled verbal cues for hand and foot placement during TFs. PT Short Term Goals Short Term Goals Time Frame: Mar 26, 2021 Roll Left & Right: 6 Sit to lyin Lying to sitting on side of be: 6 Sit to stand: 4 (SBA) Chair/hbw-ad-zqbre transfer: 4 (SBA) Walk 10 feet: 4 (SBA) Walk 50 feet with two turns: 4 (SBA) Walk 150 feet: 4 (SBA) PT Mcfp Goals Sprinkler Helper Goals PT Sprinkler Helper Goals Time Frame: Apr 09, 2021 Roll Left & Right (QC): 6 Sit to Lying (QC): 6 Lying-Sitting on Side/Bed(QC): 6 Sit to Stand (QC): 6 Chair/Jgx-ay-Ehvyp Xfer(QC): 6 Toilet Transfer (QC): 6 Car Transfer (QC): 6 Does the Patient Walk: Yes Walk 10 feet (QC): 6 Walk 50ft with 2 Turns (QC): 6 Walk 150 ft (QC): 6 Walking 10ft on Uneven Surface: 6 1 Step (curb) (QC): 4 4 Steps (QC): 4 12 Steps (QC): 4 Picking up an Object (QC): 6 Wheel 50 feet with 2 turns (QC: 9 Wheel 150 feet: 9 PT Plan Problem List Problem List: Activity Tolerance, Functional Strength, Safety Treatment/Plan Treatment Plan: Continue Plan of Care Treatment Plan: Bed Mobility, Education, Functional Activity Sav, Functional Strength, Group Therapy, Gait, Safety, Therapeutic Exercise, Transfers Treatment Duration: Apr 09, 2021 Frequency: At least 5 of 7 days/Wk (IRF) Estimated Hrs Per Day: 1.5 hours per day Patient and/or Family Agrees t: Yes Safety Risks/Education Patient Education: Gait Training, Transfer Techniques Teaching Recipient: Patient Teaching Methods: Discussion Response to Teaching: Return Demonstration Time/GCodes Time In: 915 Time Out: 945 Total Billed Treatment Time: 30 Total Billed Treatment 1, GT 10min, EX 20min JAY SETHI [employer] TECHNICIAN Mar 20, 2021 11:38
[2021-03-20] MEDS: HYDROcodone/APAP 5 MG/325 MG (LORTAB) TAB PO PRN (12:46)
--- NOTE | 2021-03-20 13:29 | Consultation-Cardiology ---
HPI-Cardiology Cardiology Consultation: Date of Consultation 03/20/2021 Date of Admission 03/19/2021 Attending Physician Mildred Maria DO Admitting Physician Kisha,Local Physician Consulting Physician PILAR ORTIZ JR, MD HPI: Time Seen by a Provider: 13:24 Chief Complaint: Reason for consultation: Atrial fibrillation and coronary artery disease. I had the pleasure of seeing Shayne on the inpatient rehabilitation unit at [facility] in [place], [place] this afternoon. He has a known history of coronary artery disease with previous stents and follows with a post acute care nurse at [facility] in [place], [place]. apparently around February the patient was having some symptoms concerning for possible angina. He underwent an outpatient stress test that was abnormal and subsequently underwent a cardiac catheterization around March 10, 2021. That showed severe three-vessel coronary artery disease and he was kept in the hospital for coronary artery byp ass surgery. On March 12 he underwent four-vessel coronary bypass surgery with a left internal mammary artery graft to left anterior descending coronary artery, a sequential vein graft to a diagonal and obtuse marginal branch and another vein graft to the posterior descending artery. Surgery was uneventful however on postoperative day 2 or 3, the patient was having some new neurologic symptoms and had also developed atrial fibrillation. 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 He was placed on amiodarone and apixaban. He ultimately converted to sinus rhythm and as his clinical status improved, he was transferred to our facility for inpatient rehabilitation. He denies chest discomfort other than the usual postoperative sternal pain. He denies dyspnea, paroxysmal nocturnal dyspnea, orthopnea, palpitations, lightheadedness, or syncope. He has mild ankle edema. Because of his cardiac history, a cardiology consultation was requ ested. Certain portions of this document may have been dictated utilizing voice recognition technology. Inherent to this technology, typographical and grammatical errors may exist. As much as I am diligent to identify and correct these mistakes, some errors may remain in the document. Review of Systems-Cardiology Review of Systems Other comments Review of 10 organ systems is as per the history of present illness, otherwise negative. All Other Systems Reviewed Negative Unless Noted: Yes [id number] Hx Patient Social History Marrital Status: Employed/Student: retired Smoking Status: Former Smoker Have you traveled recently?: No Alcohol Use?: No Pt feels they are or have been: No Immunizations Up To Date Date of Influenza Vaccine: Nov 08, 2021 Past Medical History PMH As described under Assessment. Family Medical History Family Medical History: The patient did not report any family history of premature coronary artery disease in first-degree relatives. Allergies and Home Medications Allergies Coded Allergies: No Known Drug Allergies (Unverified , 03/19/21) Patient Home Medication List Home Medication List Reviewed: Yes Acetaminophen (Tylenol Arthritis) 650 Mg Tablet.er, 650 MG PO Q4H PRN for PAIN- MILD (1-4), (Reported) Entered as Reported by: DESHAUN BARTHOLOMEW on 03/19/211106 Last Action: Converted Amiodarone HCl (Amiodarone HCl) 400 Mg Tablet, 400 MG PO DAILY, (Reported) Entered as Reported by: DESHAUN BARTHOLOMEW on 03/19/211106 Last Action: Converted Apixaban (Eliquis) 5 Mg Tablet, 5 MG PO BID, (Reported) Entered as Reported by: DESHAUN BARTHOLOMEW on 03/19/211106 Last Action: Continued Aspirin (Aspirin EC) 81 Mg Tablet.dr, 81 MG PO DAILY, (Reported) Entered as Reported by: DESHAUN BARTHOLOMEW on 03/19/211106 Last Action: Continued Atorvastatin Calcium (Atorvastatin Calcium) 80 Mg Tablet, 80 MG PO HS, (Reported) Entered as Reported by: DESHAUN BARTHOLOMEW on 03/19/211106 Last Action: Continued Docusate Sodium (Docusate Sodium) 100 Mg Capsule, 100 MG PO BID, (Reported) Entered as Reported by: DESHAUN BARTHOLOMEW on 03/19/211106 Last Action: Continued Guaifenesin (Mucinex) 1,200 Mg Tab.er.12h, 1,200 MG PO Q12H, (Reported) Entered as Reported by: DESHAUN BARTHOLOMEW on 03/19/211106 Last Action: Converted Hydrocodone/Acetaminophen (Hydrocodone-Acetamin 5-325 mg) 1 Each Tablet, 1 TAB PO Q6H PRN for PAIN-MODERATE (5-7), (Reported) Entered as Reported by: DESHAUN BARTHOLOMEW on 03/19/211106 Last Action: Continued Insulin Lispro (Humalog) 100 Unit/1 Ml Cartridge, UNIT SQ WITH MEALS & BEDTIME, (Reported) Entered as Reported by: DESHAUN BARTHOLOMEW on 03/19/211106 Last Action: Held Metoprolol Tartrate (Metoprolol Tartrate) 25 Mg Tablet, 12.5 MG PO BID WITH MEALS, (Reported) Entered as Reported by: DESHAUN BARTHOLOMEW on 03/19/211106 Last Action: Continued Ondansetron HCl (Ondansetron HCl) 4 Mg Tablet, 4 MG PO Q6H PRN for NAUSEA/VOMITING-1ST LINE, (Reported) Entered as Reported by: DESHAUN BARTHOLOMEW on 03/19/211106 Last Action: Converted Pantoprazole Sodium (Pantoprazole Sodium) 40 Mg Tablet.dr, 40 MG PO DAILY, (Reported) Entered as Reported by: DESHAUN BARTHOLOMEW on 03/19/211106 Last Action: Continued Polyethylene Glycol 3350 (Miralax) 17 Gm Powd.pack, 17 GM PO DAILY, (Reported) Entered as Reported by: DESHAUN BARTHOLOMEW on 03/19/211106 Last Action: Continued Exam Vital Signs Vital Signs Date Time Temp Pulse Resp B/P (MAP) Pulse Ox O2 Delivery O2 Flow Rate FiO2 03/20/21 09:11 94 Room Air 03/20/21 08:00 36.8 70 18 123/73 (90) Physical Exam General: Alert. No acute distress. Well nourished and appears stated age. Eye: Extraocular movements are intact. Conjunctivae are clear. There are no xanthelasma. HENT: Normocephalic. Atraumatic. Carotid pulsations 2/2 without bruits. Neck: Jugular venous pressure does not appear elevated. No thyromegaly ap preciated. Respiratory: Lungs are clear to auscultation. Respirations are non-labored. Breath sounds are equal. Symmetrical chest wall expansion. Cardiovascular: Normal rate. Regular rhythm. No murmur. No gallop. Point of maximal impulse is not appear displaced. Good pulses equal in all extremities. 1+ bilateral pretibial edema. Gastrointestinal: Soft. Normal bowel sounds. Skin: Skin turgor is normal. There is no pallor. Musculoskeletal: No kyphosis or scoliosis appreciated. Neurologic: Alert and oriented to person, place, time. Cranial nerves 3-12 appear grossly intact. The patient has good motor tone strength in the upper and lower extremities bilaterally. Psychiatric: Cooperative. Appropriate mood & affect. Labs Laboratory Tests Test 03/19/21 20:23 03/20/21 05:10 03/20/21 05:45 03/20/21 10:31 Range/Units Glucometer 141 H 105 189 H 70-110 MG/DL White Blood Count 14.1 H 4.3-11.0 10^3/uL Red Blood Count 3.85 L 4.30-5.52 10^6/uL Hemoglobin 11.0 L 13.3-17.7 g/dL Hematocrit 35 L 40-54 % Mean Corpuscular Volume 91 80-99 fL Mean Corpuscular Hemoglobin 29 25-34 pg Mean Corpuscular Hemoglobin Concent 32 32-36 g/dL Red Cell Distribution Width 14.9 H 10.0-14.5 % Platelet Count 310 130-400 10^3/uL Mean Platelet Volume 11.2 9.0-12.2 fL Immature Granulocyte % (Auto) 4 % Neutrophils (%) (Auto) 73 42-75 % Lymphocytes (%) (Auto) 16 12-44 % Monocytes (%) (Auto) 5 0-12 % Eosinophils (%) (Auto) 1 0-10 % Basophils (%) (Auto) 0 0-10 % Neutrophils # (Auto) 10.3 H 1.8-7.8 10^3/uL Lymphocytes # (Auto) 2.3 1.0-4.0 10^3/uL Monocytes # (Auto) 0.7 0.0-1.0 10^3/uL Eosinophils # (Auto) 0.2 0.0-0.3 10^3/uL Basophils # (Auto) 0.0 0.0-0.1 10^3/uL Immature Granulocyte # (Auto) 0.5 H 0.0-0.1 10^3/uL Neutrophils % (Manual) 72 % Lymphocytes % (Manual) 17 % Monocytes % (Manual) 5 % Eosinophils % (Manual) 1 % Atypical Lymphocytes 4 % Reactive Lymphocytes 1 % Polychromasia SLIGHT Microcytosis SLIGHT Macrocytosis SLIGHT Sodium Level 139 135-145 MMOL/L Potassium Level 4.1 3.6-5.0 MMOL/L Chloride Level 104 98-107 MMOL/L Carbon Dioxide Level 22 21-32 MMOL/L Anion Gap 13 5-14 MMOL/L Blood Urea Nitrogen 22 H 7-18 MG/DL Creatinine 1.20 0.60-1.30 MG/DL Estimat Glomerular Filtration Rate 61 BUN/Creatinine Ratio 18 Glucose Level 109 H 70-105 MG/DL Calcium Level 8.4 L 8.5-10.1 MG/DL Corrected Calcium 9.1 8.5-10.1 MG/DL Total Bilirubin 0.9 0.1-1.0 MG/DL Aspartate Amino Transf (AST/SGOT) 32 5-34 U/L Alanine Aminotransferase (ALT/SGPT) 25 0-55 U/L Alkaline Phosphatase 61 40-136 U/L Total Protein 5.9 L 6.4-8.2 GM/DL Albumin 3.1 L 3.2-4.5 GM/DL ECG Impression ECG Comment Electrocardiogram from 03/20/2021 shows sinus bradycardia at 58 bpm with left atrial abnormality and left posterior fascicular block. Diagnosis/Problems Diagnosis/Problems (1) Paroxysmal atrial fibrillation Assessment & Plan: He remains in sinus rhythm on oral amiodarone. I will reduce the dose. He should continue on apixaban for stroke prophylaxis. Since this was postoperative atrial fibrillation following coronary bypass surgery, at some point the amiodarone can probably be discontinued after discharge. I will leave this up to the discretion of his regular post acute care nurse at the outside facility. 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 He is on low strength aspirin, beta-nadia and statin medication which should be continued. (3) Cerebrovascular accident Assessment & Plan: Unfortunately, he suffered a cerebrovascular accident following coronary bypass surgery. This may have been related to the atrial fibrillation or perhaps an embolic event that could have occurred during crossclamping of the aorta. Since the atrial fibrillation recurred in the early postoperative phase, there is no definitive way to know what caused his cerebro vascular accident. Nonetheless, given the atrial fibrillation, I concur with ongoing use of oral anticoagulation. Fortunately, he does not appear to have any significant neurologic deficits at this time. (4) Primary hypertension Assessment & Plan: He has been continued on metoprolol. We will monitor his blood pressures and adjust his antihypertensive medication if needed. If his blood pressure does become elevated, I would recommend maximizing beta-nadia before adding additional agents unless he has bradycardia on higher doses of beta-nadia. If he does need an additional agent, I would recommend ERWIN inhibitor or ARB. (5) Mixed hyperlipidemia Assessment & Plan: Continue statin medication PILAR ORTIZ JR, MD Mar 20, 2021 13:29
[2021-03-20 19:32] VITALS: BP 165/76
[2021-03-21] MEDS: inSUlin ASPART (NovoLOG) 1 UNIT/0.01 ML (CHARGE PER UNIT) SC SCH ×4 (06:00→21:42)
--- NOTE | 2021-03-21 06:52 | PM&R Progress Note ---
Subjective HPI/CC On Admission Date Seen by Provider: Mar 21, 2021 Time Seen by Provider: 12:00 Subjective/Events-last exam 03/21/2021: Patient doing well No concerns Feels like he is getting stronger No falls or pain Wound looks good Appreciate cardiology 03/20/2021: Patient doing very well Settling in well EKG obtained for Dr. Encarnacion No pain is reported except for mediastinum Reviewed labs Sitting in chair Eating well Review of Systems General: Fatigue, Malaise Neurological: Weakness Objective Exam Vital Signs Vital Signs Date Time Temp Pulse Resp B/P (MAP) Pulse Ox O2 Delivery O2 Flow Rate FiO2 03/21/21 21:00 97 Room Air 03/21/21 19:36 36.0 66 16 166/73 (104) Capillary Refill : General Appearance: No Apparent Distress, WD/WN, Chronically ill, Obese HEENT: PERRL/EOMI, Normal ENT Inspection, Pharynx Normal Neck: Full Range of Motion, Normal Inspection, Non Tender, Supple, Carotid Bruit Respiratory: Chest Non Tender, Lungs Clear, Normal Breath Sounds, No Accessory Muscle Use, No Respiratory Distress Cardiovascular: Regular Rate, Rhythm, No Edema, No Gallop, No JVD, No Murmur, Normal Peripheral Pulses Gastrointestinal: Normal Bowel Sounds, No Organomegaly, No Pulsatile Mass, Non Tender, Soft Back: Normal Inspection, No CVA Tenderness, No Vertebral Tenderness Extremity: Normal Capillary Refill, Normal Inspection, Normal Range of Motion, Non Tender, No Calf Tenderness, No Pedal Edema Neurologic/Psychiatric: Alert, Oriented x3, Normal Mood/Affect, car greaser II-XII Norm as Tested, Abnormal Gait, Motor Weakness (Bilateral upper extremities 3/5) Skin: Normal Color, Warm/Dry Lymphatic: No Adenopathy Results/Procedures Lab Patient resulted labs reviewed. FIM Transfers Therapy Code Descriptions/Definitions Functional [place] Measure: 0=Not Assessed/NA 4=Minimal Assistance 1=Total Assistance 5=Supervision or Setup 2=Maximal Assistance 6=Modified [place] 3=Moderate Assistance 7=Complete IndependenceSCALE: Activities may be completed with or without assistive devices. 2-Kyyeabfnic-hbkcasx completes the activity by him/herself with no assistance from a helper. 5-Set-up or Clean-up Assistance-helper sets up or cleans up; patient completes activity. [place] assists only prior to or following the activity. 4-Supervision or Touching Assistance-helper provides verbal cues and/or touching/steadying and/or contact guard assistance as patient completes activity. Assistance may be provided throughout the activity or intermittently. 3-Partial/Moderate Assistance-helper does LESS THAN HALF the effort. [place] lifts, holds or supports trunk or limbs, but provides less than half the effort. 2-Substantial/Maximal Assistance-helper does MORE THAN HALF the effort. [place] l ifts or holds trunk or limbs and provides more than half the effort. 1-Jstvhbhqz-xdudwr does ALL the effort. Patient does none of the effort to complete the activity. Or, the assistance of 2 or more helpers is required for the patient to complete the activity. If activity was not attempted, code reason: 7-Patient Refused. 9-Not Applicable-not attempted and the patient did not perform the activity before the current illness, exacerbation or injury. 10-Not Attempted due to Environmental Limitations-(lack of equipment, weather restraints, etc.). 88-Not Attempted due to Medical Conditions or Safety Concerns. Roll Left to Right (QC): 4 Sit to Lying (QC): 4 Sit to Stand (QC): 3 Chair/Joa-ws-Qavdt Xfer(QC): 4 Car Transfer (QC): 3 Gait Training Does the Patient Walk?: Yes Distance: 150' x1 100'x1 Walk 10 feet (QC): 5 Walk 50 ft with 2 Turns(QC): 4 Walk 150 ft (QC): 4 Walking 10ft/uneven surface-QC: 4 Gait Persons Needed: 1 Gait Assistive Device: FWW Wheelchair Training Does the Pt Use a Wheelchair?: No Wheel 50 ft with 2 turns (QC): 9 Wheel 150 ft (QC): 9 Stair Training #of Steps: 1 1 Step (curb) (QC): 4 4 Steps (QC): 88 12 Steps (QC): 88 Balance Picking up an Object (QC): 4 (SBA with cutter first) ADL-Treatment Eating (QC): 6 Oral Hygiene (QC): 4 Shower/Bathe Self (QC): 3 (min) Upper Body Dressing (QC): 3 (mod) Lower Body Dressing (QC): 3 (min) On/Off Footwear (QC): 3 (min) Toileting Hygiene (QC): 4 Assessment/Plan Assessment and Plan Assess & Plan/Chief Complaint Assessment: CVA Atrial fibrillation Maintain on anticoagulation for stroke prophylaxis Diabetes Hypertension Hyperlipidemia Confusion Sternal wound Recent bypass surgery Plan: Rehab protocol Cardiology consult Monitor closely 03/20/2021: Supportive care Labs stable 03/21/2021: Appreciate cardiology Supportive care (1) Paroxysmal atrial fibrillation Assessment & Plan: He remains in sinus rhythm on oral amiodarone. I will reduce the dose. He should continue on apixaban for stroke prophylaxis. Since this was postoperative atrial fibrillation following coronary bypass surgery, at some point the amiodarone can probably be discontinued after discharge. I will leave this up to the discretion of his regular automobile rental representative at the outside facility. 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 He is on low strength aspirin, beta-nadia and statin medication which should be continued. (3) Cerebrovascular accident Assessment & Plan: Unfortunately, he suffered a cerebrovascular accident following coronary bypass surgery. This may have been related to the atrial fibrillation or perhaps an embolic event that could have occurred during crossclamping of the aorta. Since the atrial fibrillation recurred in the early postoperative phase, there is no definitive way to know what caused his cerebrovascular accident. Nonetheless, given the atrial fibrillation, I concur with ongoing use of oral anticoagulation. Fortunately, he does not appear to have any significant neurologic deficits at this time. (4) Primary hypertension Assessment & Plan: He has been continued on metoprolol. We will monitor his blood pressures and adjust his antihypertensive medication if needed. If his blood pressure does become elevated, I would recommend maximizing beta-nadia before adding additional agents unless he has bradycardia on higher doses of beta-nadia. If he does need an additional agent, I would recommend ERWIN inhibitor or ARB. (5) Mixed hyperlipidemia Assessment & Plan: Continue statin medication LESTER MACIEL DO Mar 21, 2021 06:52
[2021-03-21 07:16] VITALS: BP 176/79
[2021-03-21] MEDS: ASPIRIN E.C. 81 MG (ECOTRIN) TAB PO SCH (08:20)
[2021-03-21] MEDS: guaiFENesin (MUCINEX) 600 MG TAB PO SCH ×2 (08:20→21:41)
[2021-03-21] MEDS: SENNA W/DOCUSATE (SENOKOT S) TABLET PO SCH ×2 (08:20→21:53)
[2021-03-21] MEDS: HYDROcodone/APAP 5 MG/325 MG (LORTAB) TAB PO PRN ×3 (08:20→21:41)
[2021-03-21] MEDS: meTOprolol TARTRATE 25 MG (LOPRESSOR) TABLET PO SCH ×2 (08:21→18:11)
[2021-03-21] MEDS: polyethylene glycoL POWDER 17 GM (MIRALAX) PACK PO SCH (08:21)
[2021-03-21] MEDS: APIXABAN 5 MG (ELIQUIS) TABLET PO SCH ×2 (08:21→21:41)
[2021-03-21] MEDS: DOCUSATE SODIUM 100 MG (COLACE) CAP PO SCH ×2 (08:21→21:41)
[2021-03-21] MEDS: PANTOPRAZOLE 40 MG (PROTONIX) TAB PO SCH (08:21)
[2021-03-21] MEDS: AMIODARONE 200 MG (CORDARONE) TAB PO SCH (08:21)
--- NOTE | 2021-03-21 13:34 | Cardiology Progress Note ---
Progress Note-Cardiology Events since last exam Date Seen by Provider: Mar 21, 2021 Time Seen by Provider: 13:33 Events since last exam I am following him due to coronary artery disease and atrial fibrillation. He remains on the inpatient rehabilitation unit. He was sitting up in a chair. His was at the bedside. This morning he was able to dress himself on his own. He hopes to be able to go home by Monday. He denies chest discomfort, dyspnea, palpitations, syncope, or ankle edema. He normally follows with an outside lens and frames prescription clerk. Certain portions of this document may have been dictated utilizing voice recognition technology. Inherent to this technology, typographical and grammatical errors may exist. As much as I am diligent to identify and correct these mistakes, some errors may remain in the document. Vitals Last set of Vitals Signs Vital Signs 03/21/21 03/21/21 07:16 09:05 Temp 36.4 Pulse 68 Resp 20 B/P (MAP) 176/79 (111) Pulse Ox 94 O2 Delivery Room Air Exam Vital Signs Vital Signs Date Time Temp Pulse Resp B/P (MAP) Pulse Ox O2 Delivery O2 Flow Rate FiO2 03/21/21 09:05 94 Room Air 03/21/21 07:16 36.4 68 20 176/79 (111) Physical Exam General: Alert. No acute distress. Eye: No xanthelasma. HENT: Normocephalic. Neck: Jugular venous pressure does not appear elevated. Respiratory: Lungs are clear to auscultation. Respirations are non-labored. Breath sounds are equal. Symmetrical chest wall expansion. Cardiovascular: Normal rate. Regular rhythm. No murmur. No gallop. No edema. Gastrointestinal: Soft. Normal bowel sounds. Skin: Warm. Dry. Neurologic: Alert and oriented to person, place, time. Cranial nerves 3-11 grossly intact. Psychiatric: Cooperative. Appropriate mood & affect. Labs Laboratory Tests Test 03/20/21 20:12 03/21/21 05:07 03/21/21 10:42 Range/Units Glucometer 170 H 110 150 H 70-110 MG/DL Diagnosis/Problems Diagnosis/Problems (1) Paroxysmal atrial fibrillation Assessment & Plan: He remains in sinus rhythm on oral amiodarone. I reduced the dose on 03/20. He should continue on apixaban for stroke prophylaxis. Since this was postoperative atrial fibrillation following coronary bypass surgery, at some point the amiodarone can probably be discontinued after discharge. I will leave this up to the discretion of his regular lens and frames prescription clerk at the outside facility. 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 He is on low strength aspirin, beta-nadia and statin medication which should be continued. (3) Primary hypertension Assessment & Plan: He has been continued on metoprolol. We will monitor his blood pressures and adjust his antihypertensive medication if needed. His blood pressure is elevated today. I doubled the dose of beta nadia. I would recommend maximizing beta-nadia before adding additional agents unless he has bradycardia on higher doses of beta-nadia. If he does need an additional agent, I would recommend ERWIN inhibitor or ARB. (4) Cerebrovascular accident Assessment & Plan: Unfortunately, he suffered a cerebrovascular accident following coronary bypass surgery. This may have been related to the atrial fibrillation or perhaps an embolic event that could have occurred during crossclamping of the aorta. Since the atrial fibrillation recurred in the early postoperative phase, there is no definitive way to know what caused his cerebrovascular accident. Nonetheless, given the atrial fibrillation, I concur with ongoing use of oral anticoagulation. Fortunately, he does not appear to have any significant neurologic deficits at this time. (5) Mixed hyperlipidemia Assessment & Plan: Continue statin medication PILAR ORTIZ JR, MD Mar 21, 2021 13:34
[2021-03-21 19:36] VITALS: BP 166/73
[2021-03-22] MEDS: inSUlin ASPART (NovoLOG) 1 UNIT/0.01 ML (CHARGE PER UNIT) SC SCH ×4 (05:43→20:17)
[2021-03-22 06:45] LABS: BASOPHILS % (AUTO) 0 % (0-10); EOSINOPHILS # (AUTO) 0.2 10^3/uL (0.0-0.3); EOSINOPHILS % (AUTO) 1 % (0-10); HEMATOCRIT 31 % (40-54); LYMPHOCYTES # (AUTO) 2.2 10^3/uL (1.0-4.0); LYMPHOCYTES % (AUTO) 17 % (12-44); MEAN CORPUSCULAR HEMOGLOBIN 29 pg (25-34); MEAN CORPUSCULAR HGB CONC 32 g/dL (32-36); MEAN CORPUSCULAR VOLUME 90 fL (80-99); MEAN PLATELET VOLUME 11.1 fL (9.0-12.2); MONOCYTES % (AUTO) 8 % (0-12); NEUTROPHILS % (AUTO) 70 % (42-75); PLATELET COUNT 292 10^3/uL (130-400); WHITE BLOOD COUNT 12.9 10^3/uL (4.3-11.0)
--- NOTE | 2021-03-22 06:48 | PM&R Progress Note ---
Subjective HPI/CC On Admission Date Seen by Provider: Mar 22, 2021 Time Seen by Provider: 09:00 Subjective/Events-last exam 03/22/2021: Pt is doing really well Wants to leave today Lortab given at midnight Bowels moved yesterday Wants to go home tomorrow Very rapid recovery 03/21/2021: Patient doing well No concerns Feels like he is getting stronger No falls or pain Wound looks good Appreciate cardiology 03/20/2021: Patient doing very well Settling in well EKG obtained for Dr. Encarnacion No pain is reported except for mediastinum Reviewed labs Sitting in chair Eating well Review of Systems General: Fatigue, Malaise Neurological: Weakness Objective Exam Vital Signs Vital Signs Date Time Temp Pulse Resp B/P (MAP) Pulse Ox O2 Delivery O2 Flow Rate FiO2 03/22/21 20:20 36.8 63 20 177/76 (109) 97 Room Air Capillary Refill : General Appearance: No Apparent Distress, WD/WN, Chronically ill, Obese HEENT: PERRL/EOMI, Normal ENT Inspection, Pharynx Normal Neck: Full Range of Motion, Normal Inspection, Non Tender, Supple, Carotid Bruit Respiratory: Chest Non Tender, Lungs Clear, Normal Breath Sounds, No Accessory Muscle Use, No Respiratory Distress Cardiovascular: Regular Rate, Rhythm, No Edema, No Gallop, No JVD, No Murmur, Normal Peripheral Pulses Gastrointestinal: Normal Bowel Sounds, No Organomegaly, No Pulsatile Mass, Non Tender, Soft Back: Normal Inspection, No CVA Tenderness, No Vertebral Tenderness Extremity: Normal Capillary Refill, Normal Inspection, Normal Range of Motion, Non Tender, No Calf Tenderness, No Pedal Edema Neurologic/Psychiatric: Alert, Oriented x3, Normal 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 FIM Transfers Therapy Code Descriptions/Definitions Functional [place] Measure: 0=Not Assessed/NA 4=Minimal Assistance 1=Total Assistance 5=Supervision or Setup 2=Maximal Assistance 6=Modified [place] 3=Moderate Assistance 7=Complete IndependenceSCALE: Activities may be completed with or without assistive devices. 8-Rphgipafay-fenqjws completes the activity by him/herself with no assistance from a helper. 5-Set-up or Clean-up Assistance-helper sets up or cleans up; patient completes activity. [place] assists only prior to or following the activity. 4-Supervision or Touching Assistance-helper provides verbal cues and/or touchin g/steadying and/or contact guard assistance as patient completes activity. Assistance may be provided throughout the activity or intermittently. 3-Partial/Moderate Assistance-helper does LESS THAN HALF the effort. [place] lifts, holds or supports trunk or limbs, but provides less than half the effort. 2-Substantial/Maximal Assistance-helper does MORE THAN HALF the effort. [place] lifts or holds trunk or limbs and provides more than half the effort. 1-Xvluquhtu-jpaetl does ALL the effort. Patient does none of the effort to complete the activity. Or, the assistance of 2 or more helpers is required for the patient to complete the activity. If activity was not attempted, code reason: 7-Patient Refused. 9-Not Applicable-not attempted and the patient did not perform the activity before the current illness, exacerbation or injury. 10-Not Attempted due to Environmental Limitations-(lack of equipment, weather restraints, etc.). 88-Not Attempted due to Medical Conditions or Safety Concerns. Roll Left to Right (QC): 4 Sit to Lying (QC): 4 Sit to Stand (QC): 3 Chair/Wvp-np-Nvyah Xfer(QC): 4 Car Transfer (QC): 3 Gait Training Does the Patient Walk?: Yes Distance: 150' x1 100'x1 Walk 10 feet (QC): 5 Walk 50 ft with 2 Turns(QC): 4 Walk 150 ft (QC): 4 Walking 10ft/uneven surface-QC: 4 Gait Persons Needed: 1 Gait Assistive Device: FWW Wheelchair Training Does the Pt Use a Wheelchair?: No Wheel 50 ft with 2 turns (QC): 9 Wheel 150 ft (QC): 9 Stair Training #of Steps: 1 1 Step (curb) (QC): 4 4 Steps (QC): 88 12 Steps (QC): 88 Balance Picking up an Object (QC): 4 (SBA with metal window frame maker) ADL-Treatment Eating (QC): 6 Oral Hygiene (QC): 4 Shower/Bathe Self (QC): 3 (min) Upper Body Dressing (QC): 3 (mod) Lower Body Dressing (QC): 3 (min) On/Off Footwear (QC): 3 (min) Toileting Hygiene (QC): 4 Assessment/Plan Assessment and Plan Assess & Plan/Chief Complaint Assessment: CVA Atrial fibrillation Maintain on anticoagulation for stroke prophylaxis Diabetes Hypertension Hyperlipidemia Confusion Sternal wound Recent bypass surgery Plan: Rehab protocol Cardiology consult Monitor closely 03/20/2021: Supportive care Labs stable 03/21/2021: Appreciate cardiology Supportive care 03/22/2021: Discharge home tomorrow Monitor closely (1) Paroxysmal atrial fibrillation Assessment & Plan: He remains in sinus rhythm on oral amiodarone. I reduced the dose on 03/20. He should continue on apixaban for stroke prophylaxis. Since this was postoperative atrial fibrillation following coronary bypass surgery, at some point the amiodarone can probably be discontinued after discharge. I will leave this up to the discretion of his regular organizational effectiveness consultant at the outside facility. 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 He is on low strength aspirin, beta-nadia and statin medication which should be continued. (3) Primary hypertension Assessment & Plan: He has been continued on metoprolol. We will monitor his blood pressures and adjust his antihypertensive medication if needed. His blood pressure is elevated today. I doubled the dose of beta nadia. I would recommend maximizing beta-nadia before adding additional agents unless he has bradycardia on higher doses of beta-nadia. If he does need an additional agent, I would recommend ERWIN inhibitor or ARB. (4) Cerebrovascular accident Assessment & Plan: Unfortunately, he suffered a cerebrovascular accident following coronary bypass surgery. This may have been related to the atrial fibrillation or perhaps an embolic event that could have occurred during crossclamping of the aorta. Since the atrial fibrillation recurred in the early postoperative phase, there is no definitive way to know what caused his cerebrovascular accident. Nonetheless, given the atrial fibrillation, I concur with ongoing use of oral anticoagulation. Fortunately, he does not appear to have any significant neurologic deficits at this time. (5) Mixed hyperlipidemia Assessment & Plan: Continue statin medication LESTER MACIEL DO Mar 22, 2021 06:48
[2021-03-22 06:50] LABS: ALBUMIN 2.8 GM/DL (3.2-4.5)
[2021-03-22 06:51] LABS: POTASSIUM 4.3 MMOL/L (3.6-5.0)
[2021-03-22 06:52] LABS: CALCIUM 8.1 MG/DL (8.5-10.1)
[2021-03-22 06:53] LABS: TOTAL PROTEIN 5.3 GM/DL (6.4-8.2)
[2021-03-22 06:55] LABS: BILIRUBIN,TOTAL 0.6 MG/DL (0.1-1.0)
[2021-03-22 06:57] LABS: CREATININE SERUM 1.27 MG/DL (0.60-1.30)
[2021-03-22 07:34] VITALS: BP 169/77
[2021-03-22] MEDS ORDERED: LEVOTHYROXINE 50 MCG (LEVOTHROID) TAB PO NR (07:52)
--- NOTE | 2021-03-22 08:26 | Occupational Ther Daily Note ---
OT Current Status-Daily Note Subjective Pt denies pain, agreeable to treatment. Wants to go home. Appearance Pt left sitting in recliner, all needs within reach at OT departure. ADL-Treatment Therapy Code Descriptions/Definitions Functional [place] Measure: 0=Not Assessed/NA 4=Minimal Assistance 1=Total Assistance 5=Supervision or Setup 2=Maximal Assistance 6=Modified [place] 3=Moderate Assistance 7=Complete IndependenceSCALE: Activities may be completed with or without assistive devices. 7-Zskyttxfha-jtshntd completes the activity by him/herself with no assistance from a helper. 5-Set-up or Clean-up Assistance-helper sets up or cleans up; patient completes activity. [place] assists only prior to or following the activity. 4-Supervision or Touching Assistance-helper provides verbal cues and/or touching/steadying and/or contact guard assistance as patient completes activity. Assistance may be provided throughout the activity or intermittently. 3-Partial/Moderate Assistance-helper does LESS THAN HALF the effort. [place] lifts, holds or supports trunk or limbs, but provides less than half the effort. 2-Substantial/Maximal Assistance-helper does MORE THAN HALF the effort. [place] lifts or holds trunk or limbs and provides more than half the effort. 0-Jspixxvbe-imzsgv does ALL the effort. Patient does none of the effort to complete the activity. Or, the assistance of 2 or more helpers is required for the patient to complete the activity. If activity was not attempted, code reason: 7-Patient Refused. 9-Not Applicable-not attempted and the patient did not perform the activity bef ore the current illness, exacerbation or injury. 10-Not Attempted due to Environmental Limitations-(lack of equipment, weather r estraints, etc.). 88-Not Attempted due to Medical Conditions or Safety Concerns. Eating (QC): 6 Oral Hygiene (QC): 4 Upper Body Dressing (QC): 4 Lower Body Dressing (QC): 4 On/Off Footwear: 5 Toileting Hygiene (QC): 4 Toilet Transfer (QC): 4 Pt refused shower as he reports he will be leaving today. Agreeable to partial sponge bath standing at sink. Focus on improving standing tolerance, endurance and overall cardiovascular health. Pt stood to wash face and under bilateral arms. No physical assistance required. Min verbal cues/reminders on sternal precautions, specifically no lifting UE's greater than 90 degrees shoulder flexion. Pt is determined to go home and often pushes self. He does require cues and education on taking breaks and pacing self throughout adls. Dressing tasks performed seated in chair. Again, verbal cues on adherence to sternal precautions with UB dressing, but no physical assist needed. Supervision for safety as he stood to pull LB clothing up to waist, slightly impulsive but no LOB. Other Treatment Pt participated in modified UE exercises with 3# hand held weight. Goal to promote increased endurance, strength, and cardiovascular health needed for functional tasks. Pt educated on modified exercises to reduce simultaneous UE movements and no lifting over 90 degrees shoulder flexion. 15x2. Good tolerance with short rest breaks. Education OT Patient Education: Correct positioning, Disease process, Energy conservati on, Exercise program, Modified ADL techniques, Progress toward Goal/Update tx plan, Purpose of tx/functional activities, Reviewed precautions, Rehab process, Safety issues, Transfer techniques Teaching Recipient: Patient Teaching Methods: Demonstration, Discussion Response to Teaching: Verbalize Understanding, Reinforcement Needed OT Short Term Goals Short Term Goals Time Frame: Mar 24, 2021 Eatin Oral hygiene: 6 Toileting hygiene: 4 Shower/bathe self: 4 Upper body dressin Lower body dressin Putting on/taking off footwear: 4 OT Spot Welder Body Assembly Goals Spot Welder Body Assembly Goals Time Frame: Mar 30, 2021 Eating (QC): 6 Oral Hygiene (QC): 6 Toileting Hygiene (QC): 6 Shower/Bathe Self (QC): 5 Upper Body Dressing (QC): 6 Lower Body Dressing (QC): 6 On/Off Footwear (QC): 5 1=Demonstrate adherence to instructed precautions during ADL tasks. 2=Patient will verbalize/demonstrate understanding of assistive devices/modifications for ADL. 3=Patient will improve strength/tolerance for activity to enable patient to perform ADL's. OT Education/Plan Problem List/Assessment Assessment: Decreased Activ Tolerance, Decreased Safety Aware, Decreased UE Strength, Impaired Funct Balance, Impaired I ADL's, Impaired Self-Care Skills, Restricted Funct UE ROM Discharge Recommendations Plan/Recommendations: Continue POC Therapy Discharge Recommendati: Home & Family, Post Acute OT (home with home health OT) Treatment Plan/Plan of Care Treatment,Training & Education: Yes Patient would benefit from OT for education, treatment and training to promote independence in ADL's, mobility, safety and/or upper extremity function for ADL's. Plan of Care: ADL Retraining, Functional Mobility, Group Exercise/Act as Ind, UE Funct Exercise/Act Treatment Duration: Mar 30, 2021 Frequency: At least 5 of 7 days/Wk (IRF) Estimated Hrs Per Day: 1.5 hours per day Agreement: Yes Rehab Potential: Good Time/GCodes Start Time: 07:30 Stop Time: 08:30 Total Time Billed (hr/min): 60 Billed Treatment Time 1 visit ADL x3 (40 min) EX (20 min) Kelsi Easton OT Mar 22, 2021 08:26
[2021-03-22] MEDS: ASPIRIN E.C. 81 MG (ECOTRIN) TAB PO SCH (08:44)
[2021-03-22] MEDS: PANTOPRAZOLE 40 MG (PROTONIX) TAB PO SCH (08:44)
[2021-03-22] MEDS: meTOprolol TARTRATE 25 MG (LOPRESSOR) TABLET PO SCH ×2 (08:45→17:52)
[2021-03-22] MEDS: guaiFENesin (MUCINEX) 600 MG TAB PO SCH ×2 (08:45→20:16)
[2021-03-22] MEDS: DOCUSATE SODIUM 100 MG (COLACE) CAP PO SCH ×2 (08:45→20:16)
[2021-03-22] MEDS: AMIODARONE 200 MG (CORDARONE) TAB PO SCH (08:45)
[2021-03-22] MEDS: polyethylene glycoL POWDER 17 GM (MIRALAX) PACK PO SCH (08:45)
[2021-03-22] MEDS: APIXABAN 5 MG (ELIQUIS) TABLET PO SCH ×2 (08:45→20:16)
[2021-03-22] MEDS: SENNA W/DOCUSATE (SENOKOT S) TABLET PO SCH ×3 (08:45→20:17)
--- NOTE | 2021-03-22 09:50 | Physical Therapy Daily Note ---
PT Daily Note-Current Subjective Patient in recliner pre tx, agrees to PT, has no complaints of pain. Appearance Patient in recliner post tx with nurse call,phone, tray, all needs met. Mental Status Patient Orientation: Person, Place, Situation Transfers SCALE: Activities may be completed with or without assistive devices. 2-Dbfmsekcua-ldwppgx completes the activity by him/herself with no assistance from a helper. 5-Set-up or Clean-up Assistance-helper sets up or cleans up; patient completes activity. [place] assists only prior to or following the activity. 4-Supervision or Touching Assistance-helper provides verbal cues and/or touc kathy/steadying and/or contact guard assistance as patient completes activity. Assistance may be provided throughout the activity or intermittently. 3-Partial/Moderate Assistance-helper does LESS THAN HALF the effort. [place] lifts, holds or supports trunk or limbs, but provides less than half the effort. 2-Substantial/Maximal Assistance-helper does MORE THAN HALF the effort. [place] lifts or holds trunk or limbs and provides more than half the effort. 1-Geshkmifg-lwalff does ALL the effort. Patient does none of the effort to complete the activity. Or, the assistance of 2 or more helpers is required for the patient to complete the activity. If activity was not attempted, code reason: 7-Patient Refused. 9-Not Applicable-not attempted and the patient did not perform the activity before the current illness, exacerbation or injury. 10-Not Attempted due to Environmental Limitations-(lack of equipment, weather restraints, etc.). 88-Not Attempted due to Medical Conditions or Safety Concerns. Sit to Stand (QC): 6 Chair/Xti-ri-Cynsx Xfer(QC): 6 Weight Bearing sternal precautions Gait Training Does the Patient Walk?: Yes Distance: 500'x3 Walk 10 feet (QC): 6 Walk 50 ft with 2 Turns(QC): 6 Walk 150 ft (QC): 6 Gait Assistive Device: None Patient has a bit of a wandering path but no unsteadiness or LOB, is he SOB after each bout of ambulation and needs rest breaks to catch his breath Exercises NuStep Minutes: 15 NuStep Workload: 4 (UE not used to comply with sternal precautions) Treatments transfers, ambulation, LE strengthening Assessment Current Status: Fair Progress patient is no longer ambulating with a walker PT Short Term Goals Short Term Goals Time Frame: Mar 26, 2021 Roll Left & Right: 6 Sit to lyin Lying to sitting on side of be: 6 Sit to stand: 4 (SBA) Chair/zvn-ii-iiiwh transfer: 4 (SBA) Walk 10 feet: 4 (SBA) Walk 50 feet with two turns: 4 (SBA) Walk 150 feet: 4 (SBA) PT Prison Goals Prison Goals PT Policy Analyst Goals Time Frame: Apr 09, 2021 Roll Left & Right (QC): 6 Sit to Lying (QC): 6 Lying-Sitting on Side/Bed(QC): 6 Sit to Stand (QC): 6 Chair/Ysa-vz-Pfouf Xfer(QC): 6 Toilet Transfer (QC): 6 Car Transfer (QC): 6 Does the Patient Walk: Yes Walk 10 feet (QC): 6 Walk 50ft with 2 Turns (QC): 6 Walk 150 ft (QC): 6 Walking 10ft on Uneven Surface: 6 1 Step (curb) (QC): 4 4 Steps (QC): 4 12 Steps (QC): 4 Picking up an Object (QC): 6 Wheel 50 feet with 2 turns (QC: 9 Wheel 150 feet: 9 PT Plan Problem List Problem List: Activity Tolerance, Functional Strength, Safety, Balance, Gait, Transfer, Bed Mobility, ROM Treatment/Plan Treatment Plan: Continue Plan of Care Treatment Plan: Bed Mobility, Education, Functional Activity Sav, Functional Strength, Group Therapy, Gait, Safety, Therapeutic Exercise, Transfers Treatment Duration: Apr 09, 2021 Frequency: At least 5 of 7 days/Wk (IRF) Estimated Hrs Per Day: 1.5 hours per day Patient and/or Family Agrees t: Yes Safety Risks/Education Patient Education: Gait Training, Transfer Techniques, Correct Positioning, Safety Issues Teaching Recipient: Patient Teaching Methods: Demonstration, Discussion Response to Teaching: Reinforcement Needed Time/GCodes Time In: 0900 Time Out: 1000 Total Billed Treatment Time: 60 Total Billed Treatment 1 visit EX 15' GT 45' NOLAN WALSH PT Mar 22, 2021 09:50
--- NOTE | 2021-03-22 12:13 | Occupational Ther Daily Note ---
OT Current Status-Daily Note Subjective Pt denies pain, agreeable to treatment. Appearance Left sitting in chair, all needs within reach. ADL-Treatment Therapy Code Descriptions/Definitions Functional [place] Measure: 0=Not Assessed/NA 4=Minimal Assistance 1=Total Assistance 5=Supervision or Setup 2=Maximal Assistance 6=Modified [place] 3=Moderate Assistance 7=Complete IndependenceSCALE: Activities may be completed with or without assistive devices. 2-Uqzwwytldq-cutcgqh completes the activity by him/herself with no assistance from a helper. 5-Set-up or Clean-up Assistance-helper sets up or cleans up; patient completes activity. [place] assists only prior to or following the activity. 4-Supervision or Touching Assistance-helper provides verbal cues and/or touching/steadying and/or contact guard assistance as patient completes activ ity. Assistance may be provided throughout the activity or intermittently. 3-Partial/Moderate Assistance-helper does LESS THAN HALF the effort. [place] lifts, holds or supports trunk or limbs, but provides less than half the effort. 2-Substantial/Maximal Assistance-helper does MORE THAN HALF the effort. [place] lifts or holds trunk or limbs and provides more than half the effort. 2-Xcubpbxeo-guukbw does ALL the effort. Patient does none of the effort to complete the activity. Or, the assistance of 2 or more helpers is required for the patient to complete the activity. If activity was not attempted, code reason: 7-Patient Refused. 9-Not Applicable-not attempted and the patient did not perform the activity before the current illness, exacerbation or injury. 10-Not Attempted due to Environmental Limitations-(lack of equipment, weather restraints, etc.). 88-Not Attempted due to Medical Conditions or Safety Concerns. Eating (QC): 6 Shower/Bathe Self (QC): 5 Upper Body Dressing (QC): 6 Lower Body Dressing (QC): 6 On/Off Footwear: 6 Toileting Hygiene (QC): 6 Toilet Transfer (QC): 6 Pt reports possibility of discharging tomorrow. He was agreeable to re-donning clothing for practice in improving indep and performance with adls. Emphasis on adhering to sternal precautions. Post education, pt able to don all clothing without assist. Good adherence to sternal precautions throughout, not needing any cues. Pt states that he will not want to shower in the morning and instead will wait till he gets home. He was able to simulate task with wet wipes, set up only. Other Treatment Pt participated in card game (sequence) with emphasis on improving standing tolerance, endurance, and overall cardiovascular health needed for functional tasks. He stood for ~10 minutes, no seated rest breaks or LOB. With prolong standing, pt does exhibit mild SOB. Reminders on pacing and energy conservation. Pt declines a sitting rest break. No cues on game play or reminder of rules post instruction. Overall, Appears to tolerate well. Education OT Patient Education: Correct positioning, Energy conservation, Progress toward Goal/Update tx plan, Purpose of tx/functional activities, Reviewed precautions, Safety issues Teaching Recipient: Patient Teaching Methods: Demonstration, Discussion Response to Teaching: Verbalize Understanding, Return Demonstration, Reinforcement Needed OT Short Term Goals Short Term Goals Time Frame: Mar 24, 2021 Eatin Oral hygiene: 6 Toileting hygiene: 4 Shower/bathe self: 4 Upper body dressin Lower body dressin Putting on/taking off footwear: 4 OT Assembler Ping Pong Table Goals Assembler Ping Pong Table Goals Time Frame: Mar 30, 2021 Eating (QC): 6 Oral Hygiene (QC): 6 Toileting Hygiene (QC): 6 Shower/Bathe Self (QC): 5 Upper Body Dressing (QC): 6 Lower Body Dressing (QC): 6 On/Off Footwear (QC): 5 1=Demonstrate adherence to instructed precautions during ADL tasks. 2=Patient will verbalize/demonstrate understanding of assistive devices/modifications for ADL. 3=Patient will improve strength/tolerance for activity to enable patient to perform ADL's. OT Education/Plan Problem List/Assessment Assessment: Decreased Activ Tolerance, Impaired I ADL's Discharge Recommendations Plan/Recommendations: Continue POC Treatment Plan/Plan of Care Treatment,Training & Education: Yes Patient would benefit from OT for education, treatment and training to promote independence in ADL's, mobility, safety and/or upper extremity function for ADL's. Plan of Care: ADL Retraining, Functional Mobility, Group Exercise/Act as Ind, UE Funct Exercise/Act Treatment Duration: Mar 30, 2021 Frequency: At least 5 of 7 days/Wk (IRF) Estimated Hrs Per Day: 1.5 hours per day Agreement: Yes Rehab Potential: Good Time/GCodes Start Time: 11:00 Stop Time: 11:35 Total Time Billed (hr/min): 35 Billed Treatment Time 1 visit ADL (20 min) FA (15 min) Kelsi Easton OT Mar 22, 2021 12:13
--- NOTE | 2021-03-22 13:20 | Physical Therapy Daily Note ---
PT Daily Note-Current Subjective Patient in recliner pre tx, agrees to PT, has no complaints of pain. Patient may leave tomorrow so need to check QC's Appearance Patient in recliner post tx with nurse call, phone, tray, all needs met. Mental Status Patient Orientation: Person, Place, Situation Transfers SCALE: Activities may be completed with or without assistive devices. 0-Wsvvfgqlnd-uwgldug completes the activity by him/herself with no assistance from a helper. 5-Set-up or Clean-up Assistance-helper sets up or cleans up; patient completes activity. Sparkill assists only prior to or following the activity. 4-Supervision or Touching Assistance-helper provides verbal cues and/or touching/steadying and/or contact guard assistance as patient completes activity. Assistance may be provided throughout the activity or intermittently. 3-Partial/Moderate Assistance-helper does LESS THAN HALF the effort. Sparkill lifts, holds or supports trunk or limbs, but provides less than half the effort. 2-Substantial/Maximal Assistance-helper does MORE THAN HALF the effort. Sparkill lifts or holds trunk or limbs and provides more than half the effort. 9-Qfhtiiwne-waqbap does ALL the effort. Patient does none of the effort to complete the activity. Or, the assistance of 2 or more helpers is required for the patient to complete the activity. If activity was not attempted, code reason: 7-Patient Refused. 9-Not Applicable-not attempted and the patient did not perform the activity before the current illness, exacerbation or injury. 10-Not Attempted due to Environmental Limitations-(lack of equipment, weather restraints, etc.). 88-Not Attempted due to Medical Conditions or Safety Concerns. Roll Left & Right (QC): 6 Sit to Lying (QC): 6 Lying to Sitting/Side of Bed(Q: 6 Sit to Stand (QC): 6 Chair/Esf-dr-Hfvey Xfer(QC): 6 Toilet Transfer (QC): 6 Car Transfer (QC): 6 Patient performs rolling and supine <-> sit with independence, sit <-> stand and transfers independent, independent with car transfers. Weight Bearing sternal precautions Gait Training Distance: 120', 500' Walk 10 feet (QC): 6 Walk 50 ft with 2 Turns(QC): 6 Walk 150 ft (QC): 6 Walking 10ft/uneven surface-QC: 6 Gait Assistive Device: None Patient can ambulate 500' without an assistive device with independence (including 50' with at least 2 turns of 90 degrees and 10' over an uneven alcantara rface). Patient gets SOB with ambulation and needs rest breaks Wheelchair Training Wheel 50 ft with 2 turns (QC): 9 Wheel 150 ft (QC): 9 Stair Training Stair Training: Handrails/: 2 handrails #of Steps: 12 1 Step (curb) (QC): 4 4 Steps (QC): 4 12 Steps (QC): 4 Stairs: Pattern: Reciprocal Patient can go up and down 12 steps using 2 handrails with SBA Balance Picking up an Object (QC): 6 (using skidway worker) Treatments bed mobility and transfers, ambulation, stair training, gait training Assessment Current Status: Fair Progress patient gets SOB with activity, needs rest breaks PT Short Term Goals Short Term Goals Time Frame: Mar 26, 2021 Roll Left & Right: 6 Sit to lyin Lying to sitting on side of be: 6 Sit to stand: 4 (SBA) Chair/dkg-jg-ogzrw transfer: 4 (SBA) Walk 10 feet: 4 (SBA) Walk 50 feet with two turns: 4 (SBA) Walk 150 feet: 4 (SBA) PT Faucet Polisher Goals Faucet Polisher Goals PT Custodial Goals Time Frame: Apr 09, 2021 Roll Left & Right (QC): 6 Sit to Lying (QC): 6 Lying-Sitting on Side/Bed(QC): 6 Sit to Stand (QC): 6 Chair/Dur-ne-Wricd Xfer(QC): 6 Toilet Transfer (QC): 6 Car Transfer (QC): 6 Does the Patient Walk: Yes Walk 10 feet (QC): 6 Walk 50ft with 2 Turns (QC): 6 Walk 150 ft (QC): 6 Walking 10ft on Uneven Surface: 6 1 Step (curb) (QC): 4 4 Steps (QC): 4 12 Steps (QC): 4 Picking up an Object (QC): 6 Wheel 50 feet with 2 turns (QC: 9 Wheel 150 feet: 9 PT Plan Problem List Problem List: Activity Tolerance, Functional Strength, Safety, Balance, Gait, Transfer Treatment/Plan Treatment Plan: Continue Plan of Care Treatment Plan: Bed Mobility, Education, Functional Activity Sav, Functional Strength, Group Therapy, Gait, Safety, Therapeutic Exercise, Transfers Treatment Duration: Apr 09, 2021 Frequency: At least 5 of 7 days/Wk (IRF) Estimated Hrs Per Day: 1.5 hours per day Patient and/or Family Agrees t: Yes Safety Risks/Education Patient Education: Gait Training, Transfer Techniques, Steps, Correct Positioning, Safety Issues Teaching Recipient: Patient Teaching Methods: Demonstration, Discussion Response to Teaching: Reinforcement Needed Time/GCodes Time In: 1300 Time Out: 1320 Total Billed Treatment Time: 20 Total Billed Treatment 1 visit FA 20 NOLAN WALSH PT Mar 22, 2021 13:20
--- NOTE | 2021-03-22 14:34 | ST Cognitive Linguistic Eval ---
Speech Evaluation-General Medical Diagnosis s/p CABG x4 and CVA Onset Date: Mar 12, 2021 Therapy Diagnosis Therapy Diagnosis: Mild Cognitive Linguistic Impairment Precautions Precautions: Fall Precautions/Isolations: Standard Precautions Referral Referring Physician: Dr. 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 Reviewed History: Yes Social History Current Living Status: Spouse Speech PLF-Current Status Prior Level of Function The patient was independent with ADL's prior to hospitalization. Subjective The patient was seated upright in his recliner, awake and alert upon entrance to his room. The patient greeted the clinician appropriately and was agreeable to participation in the cognitive linguistic evaluation. The patient denied changes to his speech or language however stated, "I feel a little confused but it is getting better. I am already clearer than I was two days ago." Language Eval: Auditory Comprehends Simple Yes/No Ques: Functional Indent/Objects Multiple Barber: Functional Ident/Pics in Multiple Barber: Functional Follows 1-Step Commands: Functional Follows Complex Directions: Mild (Increased accuracy was displayed with repetition of instructions. ) Follows General Conversations: Functional Language Eval: Verbal Language Completes Spontaneous Greeting: Functional Produces Auto, Serial Info: Functional Imitates Simple Words/Phrases: Functional Word Finding: Mild Requests Basic Needs: Functional States Basic Personal Info: Functional Language Evaluation: Reading Follows Simple Written Direct: Functional Language Evaluation: Writing Writes to Simple Dictation: Functional Cognitive Patient Orientation The patient was oriented to day of the week, month, year, and physical location (independently). Objective Cognitive Domain Attention: Mild Memory: Mild Problem Solving: Mild Executive Functions: Mild Visuospatial Skills: Mild Composite Severity Rating: Mild Clock Drawing Severity Rating: Mild Objective Formal/Standardized Tests [facility] Mental Status (RUST) Results The patient demonstrated a result of +21/30 on the SLUMS correlating to a rating of "mild neurocognitive disorder." Oral Motor/Speech Production The patient does not display dysarthria or apraxia of speech at this time. The patient remains 100% intelligible in known and unknown contexts. Impression The patient demonstrated a mild cognitive linguistic deficit, most notably in the areas of memory and executive functioning. Speech Patient Assess Expression of Ideas/Wants: Exhibits (3) Understanding Verbal Content: Usually Understands (3) Brief Interview-Mental Status: Yes Repetition of Three Words: Three (3) Temporal Orientation: Year: Missed by 1 year (2) Temporal Orientation: Month: Accurate within 5 days(2) Temporal Orientation: Day: Correct (1) Recall : Wear to say "Sock": Yes, no cue required (2) Recall : Color: Yes, no cue required (2) Recall : Bed: Yes,after cueing (1) Memory/Recall Ability: That he or she is in a hsp/hsp unit Speech Short Term Goals Short Term Goals Short Term Goals 1. The patient will recall functional memory strategies with 80% accuracy and mild clinician verbal cueing. Speech Maintenance Service Supervisor Goals Maintenance Service Supervisor Goals 1. The patient will demonstrate increased cognitive linguistic skills for a safe return to the least restricted environment. Speech-Plan Patient/Family Goals Patient/Family Goals: The patient wishes to return home, independently. Treatment Plan Speech Therapy Treatment Plan: Continue Plan of Care Treatment Duration: Mar 26, 2021 Frequency: 4 times per week (Four to five times per week.) Estimated Hrs Per Day: .5 hour per day Rehab Potential: Good Safety Risks/Education Teaching Recipient: Patient Teaching Methods: Discussion Response to Teaching: Reinforcement Needed Education Topics Provided: Plan of Care, Results of SLUMS Time Speech Therapy Time In: 13:45 Speech Therapy Time Out: 14:01 Total Billed Time: 16 Billed Treatment Time 1, SUKHJINDER BENITEZ [facility] ST Mar 22, 2021 14:34
[2021-03-22] MEDS ORDERED: SPIR25TA5 PO (15:02)
[2021-03-22] MEDS ORDERED: POTA-179 PO (15:02)
[2021-03-22] MEDS ORDERED: AMLO-251 PO (15:02)
[2021-03-22] MEDS ORDERED: GLYB1TAB34 PO (15:02)
[2021-03-22] MEDS ORDERED: CLN.1T PO (15:02)
[2021-03-22] MEDS ORDERED: LOVA40TA2 PO (15:02)
[2021-03-22] MEDS ORDERED: OMEP40CA6 PO (15:02)
[2021-03-22] MEDS ORDERED: ISOS30TA82 PO (15:02)
[2021-03-22] MEDS ORDERED: LOSA50TA63 PO (15:02)
[2021-03-22] MEDS ORDERED: VITA-272 PO (15:03)
[2021-03-22] MEDS ORDERED: SAW500CA10 PO (15:04)
[2021-03-22] MEDS ORDERED: CINN500C2 PO (15:07)
[2021-03-22 17:51] VITALS: BP 170/81
[2021-03-22 20:20] VITALS: BP 177/76
[2021-03-23] MEDS: inSUlin ASPART (NovoLOG) 1 UNIT/0.01 ML (CHARGE PER UNIT) SC SCH (05:31)
[2021-03-23] MEDS ORDERED: LEVO50TA PO (06:03)
[2021-03-23] MEDS ORDERED: ACHD5005 PO (06:03)
[2021-03-23] MEDS ORDERED: ATOR80TA76 PO (06:03)
[2021-03-23] MEDS ORDERED: METO-333 PO (06:03)
[2021-03-23] MEDS ORDERED: AMIO200T65 PO (06:03)
[2021-03-23] MEDS ORDERED: APIX5TAB PO (06:03)
[2021-03-23] MEDS ORDERED: GUAI600T43 PO (06:03)
--- NOTE | 2021-03-23 06:06 | Discharge Summary ---
Diagnosis/Chief Complaint Date of Admission Mar 19, 2021 at 13:40 Date of Discharge Discharge Date: Mar 23, 2021 Discharge Diagnosis Assessment: CVA Atrial fibrillation Maintain on anticoagulation for stroke prophylaxis Diabetes Hypertension Hyperlipidemia Confusion Sternal wound Recent bypass surgery Plan: Rehab protocol Cardiology consult Monitor closely 03/20/2021: Supportive care Labs stable 03/21/2021: Appreciate cardiology Supportive care 03/22/2021: Discharge home tomorrow Monitor closely (1) Paroxysmal atrial fibrillation Assessment & Plan: He remains in sinus rhythm on oral amiodarone. I reduced the dose on 03/20. He should continue on apixaban for stroke prophylaxis. Since this was postoperative atrial fibrillation following coronary bypass surgery, at some point the amiodarone can probably be discontinued after discharge. 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 He is on low strength aspirin, beta-nadia and statin medication which should be continued. (3) Primary hypertension Assessment & Plan: He has been continued on metoprolol. We will monitor his blood pressures and adjust his antihypertensive medication if needed. His blood pressure is elevated today. I doubled the dose of beta nadia. I would recommend maximizing beta-nadia before adding additional agents unless he has bradycardia on higher doses of beta-nadia. If he does need an additional agent, I would recommend ERWIN inhibitor or ARB. (4) Cerebrovascular accident Assessment & Plan: Unfortunately, he suffered a cerebrovascular accident following coronary bypass surgery. This may have been related to the atrial fibrillation or perhaps an embolic event that could have occurred during crossing supervisor ssclamping of the aorta. Since the atrial fibrillation recurred in the early postoperative phase, there is no definitive way to know what caused his cerebrovascular accident. Nonetheless, given the atrial fibrillation, I concur with ongoing use of oral anticoagulation. Fortunately, he does not appear to have any significant neurologic deficits at this time. (5) Mixed hyperlipidemia Assessment & Plan: Continue statin medication LESTER MACIEL DO Mar 22, 2021 06:48 Discharge Summary Discharge Physical Examination Allergies: Coded Allergies: No Known Drug Allergies (Unverified , 03/19/21) Vitals & I&Os Vital Signs Date Time Temp Pulse Resp B/P (MAP) Pulse Ox O2 Delivery O2 Flow Rate FiO2 03/23/21 11:13 36.4 77 18 139/71 92 Room Air General Appearance: Alert, Oriented X3, Cooperative Respiratory: Clear to Auscultation Cardiovascular: Regular Rate Neuro: Normal Gait, Normal Speech, Strength at 5/5 X4 Ext Psych/Mental Status: Mental Status NL Hospital Course Was the Problem List Reviewed?: Yes Pt had a brief hospital course after he was admitted following a CVA following bypass surgery. He overall did very well and had no significant residual, just generalized weakness that improved with time over the hospital course. He was deemed stable for discharge. Pt will follow up with Dr. Patel his PCP. Labs (last 24 hrs) Laboratory Tests 03/19/21 20:23: Glucometer 141H 03/20/21 05:10: Glucometer 105 03/20/21 05:45: White Blood Count 14.1H, Red Blood Count 3.85L, Hemoglobin 11.0L, Hematocrit 35L , Mean Corpuscular Volume 91, Mean Corpuscular Hemoglobin 29, Mean Corpuscular Hemoglobin Concent 32, Red Cell Distribution Width 14.9H, Platelet Count 310, Mean Platelet Volume 11.2, Immature Granulocyte % (Auto) 4, Neutrophils (%) (Auto) 73, Lymphocytes (%) (Auto) 16, Monocytes (%) (Auto) 5, Eosinophils (%) (Auto) 1, Basophils (%) (Auto) 0, Neutrophils # (Auto) 10.3H, Lymphocytes # (Auto) 2.3, Monocytes # (Auto) 0.7, Eosinophils # (Auto) 0.2, Basophils # (Auto) 0.0, Immature Granulocyte # (Auto) 0.5H, Neutrophils % (Manual) 72, Lymphocytes % (Manual) 17, Monocytes % (Manual) 5, Eosinophils % (Manual) 1, Atypical Lymphocytes 4, Reactive Lymphocytes 1, Polychromasia SLIGHT, Microcytosis SLIGHT, Macrocytosis SLIGHT, Sodium Level 139, Potassium Level 4.1, Chloride Level 104, Carbon Dioxide Level 22, Anion Gap 13, Blood Urea Nitrogen 22H, Creatinine 1.20, Estimat Glomerular Filtration Rate 61, BUN/Creatinine Ratio 18, Glucose Level 109H, Calcium Level 8.4L, Corrected Calcium 9.1, Total Bilirubin 0.9, Aspartate Amino Transf (AST/SGOT) 32, Alanine Aminotransferase (ALT/SGPT) 25, Alkaline Phosphatase 61, Total Protein 5.9L, Albumin 3.1L 03/20/21 10:31: Glucometer 189H 03/20/21 15:26: Glucometer 99 03/20/21 20:12: Glucometer 170H 03/21/21 05:07: Glucometer 110 03/21/21 10:42: Glucometer 150H 03/21/21 16:02: Glucometer 120H 03/21/21 20:26: Glucometer 168H 03/22/21 05:34: Glucometer 98 03/22/21 06:00: White Blood Count 12.9H, Red Blood Count 3.50L, Hemoglobin 10.0L, Hematocrit 31L , Mean Corpuscular Volume 90, Mean Corpuscular Hemoglobin 29, Mean Corpuscular Hemoglobin Concent 32, Red Cell Distribution Width 14.7H, Platelet Count 292, Mean Platelet Volume 11.1, Immature Granulocyte % (Auto) 3, Neutrophils (%) (Auto) 70, Lymphocytes (%) (Auto) 17, Monocytes (%) (Auto) 8, Eosinophils (%) (Auto) 1, Basophils (%) (Auto) 0, Neutrophils # (Auto) 9.0H, Lymphocytes # (Auto) 2.2, Monocytes # (Auto) 1.0, Eosinophils # (Auto) 0.2, Basophils # (Auto) 0.0, Immature Granulocyte # (Auto) 0.4H, Sodium Level 139, Potassium Level 4.3, Chloride Level 108H, Carbon Dioxide Level 21, Anion Gap 10, Blood Urea Nitrogen 18, Creatinine 1.27, Estimat Glomerular Filtration Rate 57, BUN/Creatinine Ratio 14, Glucose Level 113H, Calcium Level 8.1L, Corrected Calcium 9.1, Total Colten irubin 0.6, Aspartate Amino Transf (AST/SGOT) 24, Alanine Aminotransferase (ALT/SGPT) 24, Alkaline Phosphatase 61, Total Protein 5.3L, Albumin 2.8L, Thyroid Stimulating Hormone (TSH) 7.93H 03/22/21 11:25: Glucometer 178H 03/22/21 17:12: Glucometer 116H 03/22/21 20:10: Glucometer 132H Pending Labs Laboratory Tests 03/19/21 20:23: Glucometer 141 03/20/21 05:10: Glucometer 105 03/20/21 05:45: White Blood Count 14.1, Red Blood Count 3.85, Hemoglobin 11.0, Hematocrit 35, Mean Corpuscular Volume 91, Mean Corpuscular Hemoglobin 29, Mean Corpuscular Hemoglobin Concent 32, Red Cell Distribution Width 14.9, Platelet Count 310, Mean Platelet Volume 11.2, Immature Granulocyte % (Auto) 4, Neutrophils (%) (Auto) 73, Lymphocytes (%) (Auto) 16, Monocytes (%) (Auto) 5, Eosinophils (%) (Auto) 1, Basophils (%) (Auto) 0, Neutrophils # (Auto) 10.3, Lymphocytes # (Auto) 2.3, Monocytes # (Auto) 0.7, Eosinophils # (Auto) 0.2, Basophils # (Auto) 0.0, Immature Granulocyte # (Auto) 0.5, Neutrophils % (Manual) 72, Lymphocytes % (Manual) 17, Monocytes % (Manual) 5, Eosinophils % (Manual) 1, Atypical Lymphocytes 4, Reactive Lymphocytes 1, Polychromasia SLIGHT, Microcytosis SLIGHT, Macrocytosis SLIGHT, Sodium Level 139, Potassium Level 4.1, Chloride Level 104, Carbon Dioxide Level 22, Anion Gap 13, Blood Urea Nitrogen 22, Creatinine 1.20, Estimat Glomerular Filtration Rate 61, BUN/Creatinine Ratio 18, Glucose Level 109, Calcium Level 8.4, Corrected Calcium 9.1, Total Bilirubin 0.9, Aspartate Amino Transf (AST/SGOT) 32, Alanine Aminotransferase (ALT/SGPT) 25, Alkaline Phosphatase 61, Total Protein 5.9, Albumin 3.1 03/20/21 10:31: Glucometer 189 03/20/21 15:26: Glucometer 99 03/20/21 20:12: Glucometer 170 03/21/21 05:07: Glucometer 110 03/21/21 10:42: Glucometer 150 03/21/21 16:02: Glucometer 120 03/21/21 20:26: Glucometer 168 03/22/21 05:34: Glucometer 98 03/22/21 06:00: White Blood Count 12.9, Red Blood Count 3.50, Hemoglobin 10.0, Hematocrit 31, Mean Corpuscular Volume 90, Mean Corpuscular Hemoglobin 29, Mean Corpuscular Hemoglobin Concent 32, Red Cell Distribution Width 14.7, Platelet Count 292, Mean Platelet Volume 11.1, Immature Granulocyte % (Auto) 3, Neutrophils (%) (Auto) 70, Lymphocytes (%) (Auto) 17, Monocytes (%) (Auto) 8, Eosinophils (%) (Auto) 1, Basophils (%) (Auto) 0, Neutrophils # (Auto) 9.0, Lymphocytes # (Auto) 2.2, Monocytes # (Auto) 1.0, Eosinophils # (Auto) 0.2, Basophils # (Auto) 0.0, Immature Granulocyte # (Auto) 0.4, Sodium Level 139, Potassium Level 4.3, Chloride Level 108, Carbon Dioxide Level 21, Anion Gap 10, Blood Urea Nitrogen 18, Creatinine 1.27, Estimat Glomerular Filtration Rate 57, BUN/Creatinine Ratio 14, Glucose Level 113, Calcium Level 8.1, Corrected Calcium 9.1, Total Bilirubin 0.6, Aspartate Amino Transf (AST/SGOT) 24, Alanine Aminotransferase (ALT/SGPT) 24, Alkaline Phosphatase 61, Total Protein 5.3, Albumin 2.8, Thyroid Stimulating Hormone (TSH) 7.93 03/22/21 11:25: Glucometer 178 03/22/21 17:12: Glucometer 116 03/22/21 20:10: Glucometer 132 Discharge Home Medications: Active Scripts Active Synthroid (Levothyroxine Sodium) 50 Mcg Tablet 50 Mcg PO DAILY@0630 Mucinex (Guaifenesin) 600 Mg Tab.er.12h 1,200 Mg PO BID HYDROcodone/APAP 5 MG/325 MG TAB (Acetaminophen/Hydrocodone Bitart) 1 Tab Tab 1 Ea PO Q6H PRN Metoprolol Tartrate 25 Mg Tablet 25 Mg PO BID WITH MEALS Atorvastatin Calcium 80 Mg Tablet 80 Mg PO HS Amiodarone HCl 200 Mg Tablet 200 Mg PO DAILY Eliquis (Apixaban) 5 Mg Tablet 5 Mg PO BID Reported Cinnamon (Cinnamon Bark) 500 Mg Capsule 500 Mg PO DAILY [place] 500 Mg Capsule 500 Mg PO DAILY Vitamin E (Vitamin E Mixed) 400 Unit Capsule 400 Unit PO DAILY Glyburid-Metformin 1.25-250 mg (Glyburide/Metformin HCl) 1 Each Tablet 1.25-250 Mg PO BID Omeprazole 40 Mg Capsule.dr 40 Mg PO HS Aspirin EC (Aspirin) 81 Mg Tablet.dr 81 Mg PO DAILY Instructions to patient/family Please see electronic discharge instructions given to patient. Diagnosis/Problems Diagnosis/Problems (1) CVA (cerebral vascular accident) LESTER MACIEL DO Mar 23, 2021 06:05
[2021-03-23] MEDS ORDERED: LEVOTHYROXINE 50 MCG (LEVOTHROID) TAB PO SCH (06:30)
[2021-03-23 07:37] VITALS: BP 139/71
--- NOTE | 2021-03-23 08:13 | Therapy Team Discharge Summary ---
Therapy Discharge Summary Discharge Recommendations Date of Discharge Physical Therapy Roll Left to Right (QC): 6 Sit to Lying (QC): 6 Lying to Sitting/Side of Bed(Q: 6 Sit to Stand (QC): 6 Chair/Lrz-la-Iotze Xfer(QC): 6 Toilet Transfer (QC): 6 Car Transfer (QC): 6 Does the Patient Walk: Yes Mode of Locomotion: Walk Anticipated Mode of Locomotion: Walk Walk 10 feet (QC): 6 Walk 50 ft with 2 Turns(QC): 6 Walk 150 ft (QC): 6 Walking 10ft on uneven surface: 6 Distance: 300', 100'x2 Gait Assistive Device: None Does the Pt Use a Wheelchair: No Wheel 50 ft with 2 turns (QC): 9 Wheel 150 ft (QC): 9 #of Steps: 12 1 Step (curb) (QC): 4 4 Steps (QC): 4 12 Steps (QC): 4 Walking Assistive Device: Walker Balance Sitting Static: Normal Balance Sitting Dynamic: Normal Balance-Standing Static: Good Picking up an Object (QC): 6 (using metal fence erector) Occupational Therapy Decreased Activ Tolerance, Impaired I ADL's Eating (QC): 6 Oral Hygiene (QC): 4 Shower/Bathe Self (QC): 5 Upper Body Dressing (QC): 6 Lower Body Dressing (QC): 6 On/Off Footwear (QC): 6 Toileting Hygiene (QC): 6 Speech-Language Pathology The patient was evaluated by speech pathology on 03/22/2020. The patient was fou nd to display a mild neurocognitive impairment and skilled speech pathology treatment was recommended. The patient will discharge on this date prior to the onset of speech pathology. Due to this, speech pathology goals were not met throughout the stay. Home health speech pathology follow up would be appropriate. PT Sales Specialist Goals Sales Specialist Goals PT Half-Way Goals Time Frame: Apr 09, 2021 Roll Left to Right (QC): 6 Sit to Lying (QC): 6 Lying-Sitting on Side/Bed(QC): 6 Sit to Stand (QC): 6 Chair/Omw-yk-[place] Xfer(QC): 6 Car Transfer (QC): 6 Does the Patient Walk: Yes Walk 10 feet (QC): 6 Walk 10ft-Uneven Surface(QC): 6 Walk 50ft with 2 Turns (QC): 6 Walk 150 ft (QC): 6 Wheel 50 feet with 2 turns (QC: 9 1 Step (curb) (QC): 4 4 Steps (QC): 4 12 Steps (QC): 4 Picking up an Object (QC): 6 OT Sales Specialist Goals Sales Specialist Goals Time Frame: Mar 30, 2021 Eating (QC): 6 Oral Hygiene (QC): 6 Shower/Bathe Self (QC): 5 Upper Body Dressing (QC): 6 Lower Body Dressing (QC): 6 On/Off Footwear (QC): 5 Toileting Hygiene (QC): 6 Toilet/Commode Transfer (QC): 6 1=Demonstrate adherence to instructed precautions during ADL tasks. 2=Patient will verbalize/demonstrate understanding of assistive devices/modifications for ADL. 3=Patient will improve strength/tolerance for activity to enable patient to perform ADL's. Speech Sales Specialist Goals Sales Specialist Goals 1. The patient will demonstrate increased cognitive linguistic skills for a safe return to the least restricted environment. NOT MET. MIGUEL BLACKBURN Mar 23, 2021 08:13
[2021-03-23] MEDS: APIXABAN 5 MG (ELIQUIS) TABLET PO SCH (08:29)
[2021-03-23] MEDS: ASPIRIN E.C. 81 MG (ECOTRIN) TAB PO SCH (08:29)
[2021-03-23] MEDS: AMIODARONE 200 MG (CORDARONE) TAB PO SCH (08:29)
[2021-03-23] MEDS: PANTOPRAZOLE 40 MG (PROTONIX) TAB PO SCH (08:29)
[2021-03-23] MEDS: guaiFENesin (MUCINEX) 600 MG TAB PO SCH (08:29)
[2021-03-23] MEDS: meTOprolol TARTRATE 25 MG (LOPRESSOR) TABLET PO SCH (08:29)
[2021-03-23] MEDS: SENNA W/DOCUSATE (SENOKOT S) TABLET PO SCH (08:30)
[2021-03-23] MEDS: DOCUSATE SODIUM 100 MG (COLACE) CAP PO SCH (08:30)
[2021-03-23] MEDS: polyethylene glycoL POWDER 17 GM (MIRALAX) PACK PO SCH (08:30)
[2021-03-23 11:13] VITALS: BP 139/71
--- NOTE | 2021-03-23 15:39 | Therapy Team Discharge Summary ---
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 Upon evaluation patient performs rolling and supine <-> sit with SBA, sit <-> stand min assist, transfers CGA, car transfer min assist, ambulate 300' with a rolling walker with CGA (including 50' with at least 2 turns of 90 degrees and 10' over an uneven surface), can go up and down 1 step using a rolling walker with CGA, and can shredder picker an object from the floor using a health and safety manager with SBA. Patient has been performing bed mobility and transfer training, balance and endurance training, functional strengthening, stair training, gait training, and education. Patient has made good progress and has met all of his custodial goals. Now, patient performs rolling and supine <-> sit with independence, sit <-> stand and transfers independent, independent with car transfers, ambulate 500' without an assistive device with independence (including 50' with at least 2 turns of 90 degrees and 10' over an uneven surface), can go up and down 12 steps using 2 handrails with SBA, and can shredder picker an object from the floor using a health and safety manager with independence. Patient has been discharged from this facility today and will be discharged from PT at this time. Roll Left to Right (QC): 6 Sit to Lying (QC): 6 Lying to Sitting/Side of Bed(Q: 6 Sit to Stand (QC): 6 Chair/Osg-lc-Mvvpj Xfer(QC): 6 Toilet Transfer (QC): 6 Car Transfer (QC): 6 Does the Patient Walk: Yes Mode of Locomotion: Walk Anticipated Mode of Locomotion: Walk Walk 10 feet (QC): 6 Walk 50 ft with 2 Turns(QC): 6 Walk 150 ft (QC): 6 Walking 10ft on uneven surface: 6 Distance: 300', 100'x2 Gait Assistive Device: None Does the Pt Use a Wheelchair: No Wheel 50 ft with 2 turns (QC): 9 Wheel 150 ft (QC): 9 #of Steps: 12 1 Step (curb) (QC): 4 4 Steps (QC): 4 12 Steps (QC): 4 Walking Assistive Device: Walker Balance Sitting Static: Normal Balance Sitting Dynamic: Normal Balance-Standing Static: Good Picking up an Object (QC): 6 (using health and safety manager) Occupational Therapy Decreased Activ Tolerance, Impaired I ADL's Eating (QC): 6 Oral Hygiene (QC): 4 Shower/Bathe Self (QC): 5 Upper Body Dressing (QC): 6 Lower Body Dressing (QC): 6 On/Off Footwear (QC): 6 Toileting Hygiene (QC): 6 PT [employer] Supervisor Goals Residential Goals PT [employer] Supervisor Goals Time Frame: Apr 09, 2021 Roll Left to Right (QC): 6 Sit to Lying (QC): 6 Lying-Sitting on Side/Bed(QC): 6 Sit to Stand (QC): 6 Chair/Xbo-zy-Blpjn Xfer(QC): 6 Car Transfer (QC): 6 Does the Patient Walk: Yes Walk 10 feet (QC): 6 Walk 10ft-Uneven Surface(QC): 6 Walk 50ft with 2 Turns (QC): 6 Walk 150 ft (QC): 6 Wheel 50 feet with 2 turns (QC: 9 1 Step (curb) (QC): 4 4 Steps (QC): 4 12 Steps (QC): 4 Picking up an Object (QC): 6 OT Shellfish Farming Supervisor Goals [employer] Farming Supervisor Goals Time Frame: Mar 30, 2021 Eating (QC): 6 Oral Hygiene (QC): 6 Shower/Bathe Self (QC): 5 Upper Body Dressing (QC): 6 Lower Body Dressing (QC): 6 On/Off Footwear (QC): 5 Toileting Hygiene (QC): 6 Toilet/Commode Transfer (QC): 6 1=Demonstrate adherence to instructed precautions during ADL tasks. 2=Patient will verbalize/demonstrate understanding of assistive devices/modifications for ADL. 3=Patient will improve strength/tolerance for activity to enable patient to perform ADL's. Speech [employer]fish Farming Supervisor Goals Shellfish Farming Supervisor Goals 1. The patient will demonstrate increased cognitive linguistic skills for a safe return to the least restricted environment. NOT MET. NOLAN WALSH PT Mar 23, 2021 15:39
--- NOTE | 2021-03-23 15:45 | Therapy Team Discharge Summary ---
Therapy Discharge Summary Discharge Recommendations Date of Discharge Mar 23, 2021 at 11:10 Therapy D/C Recommendations: Home w/ Family Support, Occupational Therapy Home Care, Homemaker Support Physical Therapy Roll Left to Right (QC): 6 Sit to Lying (QC): 6 Lying to Sitting/Side of Bed(Q: 6 Sit to Stand (QC): 6 Chair/Alp-wy-Youpr Xfer(QC): 6 Toilet Transfer (QC): 6 Car Transfer (QC): 6 Does the Patient Walk: Yes Mode of Locomotion: Walk Anticipated Mode of Locomotion: Walk Walk 10 feet (QC): 6 Walk 50 ft with 2 Turns(QC): 6 Walk 150 ft (QC): 6 Walking 10ft on uneven surface: 6 Distance: 300', 100'x2 Gait Assistive Device: None Does the Pt Use a Wheelchair: No Wheel 50 ft with 2 turns (QC): 9 Wheel 150 ft (QC): 9 #of Steps: 12 1 Step (curb) (QC): 4 4 Steps (QC): 4 12 Steps (QC): 4 Walking Assistive Device: Walker Balance Sitting Static: Normal Balance Sitting Dynamic: Normal Balance-Standing Static: Good Picking up an Object (QC): 6 (using web interface developer) Occupational Therapy 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 Upon evaluation patient was mod a for upper body dressing, min a for bathing, lower body dressing and footwear, and cga for toileting and oral care. During rehab stay, OT focused on improving balance, endurance, safety, UE strength, activity tolerance, energy conservation strategies and adherence to sternal precautions in order to improve performance and indep in adls and functional transfers. Pt made good progress and met all of his residential goals. He is now indep for all adls except set up for bathing and footwear. Patient has been discharged from this facility today and will be discharged from OT at this time. Decreased Activ Tolerance, Impaired I ADL's Eating (QC): 6 Oral Hygiene (QC): 4 Shower/Bathe Self (QC): 5 Upper Body Dressing (QC): 6 Lower Body Dressing (QC): 6 On/Off Footwear (QC): 6 Toileting Hygiene (QC): 6 PT Halfway Goals Halfway Goals PT Halfway Goals Time Frame: Apr 09, 2021 Roll Left to Right (QC): 6 Sit to Lying (QC): 6 Lying-Sitting on Side/Bed(QC): 6 Sit to Stand (QC): 6 Chair/Rrr-qr-Brhot Xfer(QC): 6 Car Transfer (QC): 6 Does the Patient Walk: Yes Walk 10 feet (QC): 6 Walk 10ft-Uneven Surface(QC): 6 Walk 50ft with 2 Turns (QC): 6 Walk 150 ft (QC): 6 Wheel 50 feet with 2 turns (QC: 9 1 Step (curb) (QC): 4 4 Steps (QC): 4 12 Steps (QC): 4 Picking up an Object (QC): 6 OT Halfway Goals Bag Sorter Goals Time Frame: Mar 30, 2021 Eating (QC): 6 (met) Oral Hygiene (QC): 6 (met) Shower/Bathe Self (QC): 5 (met) Upper Body Dressing (QC): 6 (met) Lower Body Dressing (QC): 6 (met) On/Off Footwear (QC): 5 (met) Toileting Hygiene (QC): 6 (met) Toilet/Commode Transfer (QC): 6 (met) 1=Demonstrate adherence to instructed precautions during ADL tasks. 2=Patient will verbalize/demonstrate understanding of assistive devices/modifications for ADL. 3=Patient will improve strength/tolerance for activity to enable patient to perform ADL's. Speech Bag Sorter Goals Halfway Goals 1. The patient will demonstrate increased cognitive linguistic skills for a safe return to the least restricted environment. NOT MET. Kelsi Easton OT Mar 23, 2021 15:45
== END 2021-03-23 11:10 | disposition home or self-care (01) | DRG 57 ==
PROVIDERS: ADMIT Internal Medicine; ATTEND Internal Medicine
DX: I69.318 Other symptoms and signs involving cognitive functions following cerebral infarction (principal); R41.0 Disorientation, unspecified; I69.398 Other sequelae of cerebral infarction; R26.9 Unspecified abnormalities of gait and mobility; R53.1 Weakness; I12.9 Hypertensive chronic kidney disease with stage 1 through stage 4 chronic kidney disease, or unspecified chronic kidney disease; E11.22 Type 2 diabetes mellitus with diabetic chronic kidney disease; N18.30 Chronic kidney disease, stage 3 unspecified; I48.0 Paroxysmal atrial fibrillation; I25.119 Atherosclerotic heart disease of native coronary artery with unspecified angina pectoris; E78.00 Pure hypercholesterolemia, unspecified; E78.2 Mixed hyperlipidemia; K21.9 Gastro-esophageal reflux disease without esophagitis; Z79.4 Long term (current) use of insulin; Z95.5 Presence of coronary angioplasty implant and graft; Z95.1 Presence of aortocoronary bypass graft; Z79.01 Long term (current) use of anticoagulants; Z79.82 Long term (current) use of aspirin
CPT/HCPCS: 36415; 80053; 82947; 84443; 85007; 85025; 85027; 93005